=== PATIENT | female | born 1945 | race African-American/Black ===

== ENCOUNTER 2017-01-24 13:46 | Inpatient (IN) | payer OTHER, MEDICARE ==
[~2017-01-24] VITALS: Ht 154.9 cm; Wt 81.2 kg
[~2017-01-24 13:46] MED LIST: ASPI81TA28 PO; BACL10TA4 PO; BECL0.089 IH; BENA5TAB13 PO; BISA5ECT2 PO; FURO-570 PO; Gabapentin PO; LOVA10TA27 PO; METF850T PO; NAPR375T2 PO; OMEP-48 PO; POTA10TA10 PO; QUET25TA PO; SPIR50TA PO
--- NOTE | 2017-01-24 13:58 | NUR ---
PT TO OVERFLOW.
--- NOTE | 2017-01-24 14:00 | NUR ---
PATIENT BIBA FOR EVALATION OF NICOLAS FOOT PAIN X2 DAYS. HX DM, CVA-NO DEFICITS . PT STATES THE PAIN HAS GOTTEN WORSE OVER THE PAST 2 DAYS . DENIES N/V/D; SKIN IS WARM/DRY; AAOX4; LUNGS CLEAR BL; HR EVEN AND REGULAR; PT DENIES ANY FEVER, CP, SOB, OR COUGH AT THIS TIME; PATIENT STATES PAIN OF 9/10 AT THIS TIME; VSS; PATIENT POSITIONED IN OVERFLOW. ER MADE AWARE OF PT STATUS. Addendum: 01/24/17 at 1537 by MED1 NICOLAS LUNGS WHEEZING. LBACK PAIN 9/10 AT THIS TIME.
[2017-01-24 14:04] VITALS: BP 154/90
--- NOTE | 2017-01-24 15:20 | NUR ---
Patient being evaluated by DR CENTENO at bedside.
[2017-01-24] MEDS ORDERED: NACL 0.9% 500 ML IV SCH (15:39)
[2017-01-24] MEDS ORDERED: ALBUTEROL 0.083% 2.5 MG/3 ML NEBU INH ONE (15:45)
[2017-01-24] MEDS ORDERED: IPRATROPIUM 0.02% 0.5 MG/2.5 ML NEBU INH ONE (15:45)
[2017-01-24] MEDS ORDERED: methylPREDNISolone SS 125 MG/2 ML VIAL IVP ONE (15:45)
--- NOTE | 2017-01-24 16:01 | NUR ---
RT AT BEDSIDE
[2017-01-24 16:05] LABS: BASOPHILS # (AUTO) 0.1 K/uL (0.00-0.22); BASOPHILS % (AUTO) 1.3 % (0.0-2.0); EOSINOPHILS # (AUTO) 0.2 K/uL (0-0.4); EOSINOPHILS % (AUTO) 1.8 % (0.0-4.0); HEMATOCRIT 35.4 % (36-48); LYMPHOCYTES # (AUTO) 0.8 K/uL (2.5-16.5); LYMPHOCYTES % (AUTO) 8.4 % (20.5-51.1); MEAN CORPUSCULAR HEMOGLOBIN 25 pg (27-31); MEAN CORPUSCULAR HGB CONC 31 g/dL (33-37); MEAN CORPUSCULAR VOLUME 81 fL (80-94); MONOCYTES # (AUTO) 0.1 K/uL (0.8-1.0); NEUTROPHILS # (AUTO) 8.2 K/uL (1.8-7.7); NEUTROPHILS % (AUTO) 87.5 % (42.2-75.2); PLATELET COUNT (AUTO) 336 K/uL (140-450); RED BLOOD CELL COUNT(AUTO) 4.38 MIL/uL (4.20-5.40); RED CELL DISTRIBUTION WIDTH 14.6 % (11.6-13.7); WHITE BLOOD COUNT (AUTO) 9.4 K/uL (4.8-10.8)
[2017-01-24 16:26] LABS: PROTHROMBIN TIME 10.6 secs (10.8-13.4)
[2017-01-24 16:28] LABS: ALBUMIN 4.1 g/dL (3.4-5.0); ANION GAP 19.5 (8-16); CARBON DIOXIDE 21.5 mmol/L (21-32); CREATININE 1.6 mg/dL (0.6-1.3); TOTAL BILIRUBIN 0.4 mg/dL (0.0-1.0)
[2017-01-24 16:34] LABS: APPEARANCE,URINE CLEAR (CLEAR); BILIRUBIN,URINE NEGATIVE (NEGATIVE); BLOOD, URINE 1+ (NEGATIVE); COLOR,URINE YELLOW (YELLOW); LEUKOCYTE ESTERASE ,URINE NEGATIVE (NEGATIVE); NITRITE, URINE NEGATIVE (NEGATIVE); UGLUCOSE NEGATIVE (NEGATIVE)
[2017-01-24 16:48] LABS: WBC,URINE 0-5 /HPF (0-5)
--- NOTE | 2017-01-24 16:53 | NUR ---
X RAY AT BEDSIDE.
[2017-01-24 17:17] LABS: CKMB RELATIVE INDEX 0.4 (0.0-2.5); CREATINE KINASE MB 3.8 ng/mL (0-3.6)
[2017-01-24] MEDS ORDERED: LEVOFLOXACIN 500 MG/D5W PREMIX 100 ML IV ONE (17:25)
[2017-01-24] MEDS ORDERED: ONDANSETRON 4 MG/2 ML VIAL IM/IVP PRN (17:55)
[2017-01-24] MEDS ORDERED: DOCUSATE SODIUM 100 MG GELCAP PO PRN (17:55)
[2017-01-24] MEDS: NACL 0.9% 1,000 ML IV SCH (17:55)
[2017-01-24] MEDS ORDERED: ACETAMINOPHEN 325 MG TAB PO PRN (17:55)
[2017-01-24] MEDS ORDERED: MORPHINE SULFATE 2 MG/ML SYR IVP PRN (17:55)
--- NOTE | 2017-01-24 17:56 | NUR ---
Patient appears to be resting comfortably in bed. BP 136/87. Respirations even and unlabored.WILL CONTINUE TO MONITOR.
[2017-01-24 18:44] LABS: CHOL/HDL RATIO 1.7 (1-4.5); FREE T4 (FREE THYROXINE) 1.11 ng/dL (0.76-1.46); MAGNESIUM 2.1 mg/dL (1.8-2.4); PHOSPHORUS 4.6 mg/dL (2.5-4.9); THYROID STIMULATING HORMONE 0.43 uIU/mL (0.34-3.74)
--- NOTE | 2017-01-24 18:57 | NUR ---
GAVE REPORT TO DAIN ALVARADO
--- NOTE | 2017-01-24 18:58 | NUR ---
Patient will be admitted to care of DR MONTANO. Admited to TELE. Will go to room 120B. Belongings list completed. Report to DAIN ALVARADO.
--- NOTE | 2017-01-24 19:05 | NUR ---
PATIENT NOT YET ON UNIT. GAVE REPORT TO NIGHT NURSE.
--- NOTE | 2017-01-24 19:30 | NUR ---
RECEIVED REPORT FROM DAY RN, PATIENT NOT YET ON UNIT.
--- NOTE | 2017-01-24 19:45 | NUR ---
PATIENT ADMITTED TO UNIT FROM ED,VIA GURNEY, PATIENT TRANSFERRED TO BED, IV TO RIGHT FA PATENT AND INTACT. PATIENT IS AAOX2 ON ROOM AIR, NO SOB OR SIGN OF DISTRESS. PATIENT VERY CONFUSED AND FRIGHTENED STATING SHE DOES NOT WANT HER FAMILY TO COME HERE, THEY ARE TRYING TO " SHOOT AT HER" PATIENT UPSET. PATIENT ABLE TO FOLLOW COMMANDS. SKIN INTACT WITH SCABS TO RIGHT LOWER EXTREMITIES. PATIENT PLACE ON FALL PRECAUTIONS. SAFETY MEASURES CHECKED, DISCUSSED PLAN OF CARE WITH PATIENT, PT NEEDS REINFORCEMENT. ORIENTED TO ROOM AND CALL LIGHT. WILL CONTINUE TO CLOSELY MONITOR.
[2017-01-24] MEDS ORDERED: BISACODYL 5 MG TABEC PO PRN (20:25)
[2017-01-24] MEDS ORDERED: NON-FORMULARY ITEM (Omeprazole (Omeprazole Dr) 20 MG) PO PRN (20:25)
[2017-01-24] MEDS ORDERED: BACLOFEN 10 MG TAB PO PRN (20:25)
[2017-01-24 20:45] LABS: BARBITURATE, URINE NEG. ng/ml (NEG <=200); BENZODIAZEPINE, URINE NEG. ng/mL (NEG <=200); CANNABINOID, URINE NEG. ng/mL (NEG <=50); COCAINE, URINE NEG. ng/mL (NEG <=300); OPIATE, URINE NEG. ng/mL (NEG <=2000); PHENCYCLIDINE SCREEN,URINE NEG. ng/mL (NEG <=25)
[2017-01-24] MEDS ORDERED: [UNRECOGNIZED DRUG - OTHER] IH SCH (21:00)
[2017-01-24] MEDS ORDERED: GABAPENTIN NEURONTIN PO SCH (21:00)
--- NOTE | 2017-01-24 21:39 | NUR ---
PT OFF UNIT TO CT
[2017-01-24] MEDS ORDERED: DEXTROSE 50% 50 ML SYR IVP PRN (21:50)
[2017-01-24] MEDS ORDERED: INSULIN LISPRO SLIDING SCALE 100 UNITS/ML VIAL SUBQ PRN (21:50)
--- NOTE | 2017-01-24 21:59 | NUR ---
PATIENT BACK FROM CT, STABLE CONDITION
[2017-01-24] MEDS: CLINDAMYCIN 600 MG in DEXTROSE 5% 50 ML IV SCH ×2 (22:00→23:37)
--- NOTE | 2017-01-24 22:00 | NUR ---
PM MEDS ADMINISTERED, PATIENT TOLERATED WELL, DR BABB IN TO CHECK ON PATIENT, PATIENT VERY CONFUSED, VERY SCARED FAMILY IS TRYING TO GET IN TO SEE HER OR THROUGH THE WINDOWS. EXPLAINED TO PATIENT,SHE IS SAFE PATIENT RESTING IN BED, WILL CONTINUE TO CLOSELY MONITOR.
[2017-01-24] MEDS: POTASSIUM CHLORIDE 10 MEQ TABER PO SCH (22:09)
[2017-01-24] MEDS: QUEtiapine FUMARATE 25 MG TAB PO SCH (22:09)
[2017-01-24] MEDS: HYDROcodone/APAP 7.5/325 MG 1 TAB PO PRN (22:10)
[2017-01-24] MEDS: FUROSEMIDE 40 MG TAB PO SCH (22:10)
--- NOTE | 2017-01-24 23:05 | NUR ---
PATIENT VERY FRIGHTENED WHEN OTHER NURSE WENT INTO PATIENT'S ROOM, PT STARTED SCREAMING FOR HELP. CALMED PATIENT DOWN, SPOKE WITH CHARGE NURSE TO MOVE PATIENT CLOSER TO STATION PATIENT IS FALL RISK AND SCARED, PATIENT MOVED ROOMS, RESTING IN BED, CALL LIGHT WITHIN REACH. WILL CONTINUE OT MONITOR
[2017-01-24] MEDS ORDERED: CLINDAMYCIN 600 MG/4 ML VIAL ONE (23:38)
[2017-01-25] VITALS: BP 154/85
--- NOTE | 2017-01-25 | NUR ---
VITAL SIGNS STABLE, NO SIGN OF DISTRESS, CALL LIGHT WITHIN REACH. WILL CONTINUE TO MONITOR.
[2017-01-25] MEDS: IPRATROPIUM 0.02% 0.5 MG/2.5 ML NEBU INH PRN (00:05)
[2017-01-25] MEDS: ALBUTEROL 0.083% 2.5 MG/3 ML NEBU INH PRN (00:05)
[2017-01-25] MEDS: NACL 0.9% 1,000 ML IV SCH ×4 (01:03→19:46)
--- NOTE | 2017-01-25 02:00 | NUR ---
PT RESTING IN BED, NO SIGN OF DISTRESS, WILL CONTINUE TO MONITOR
[2017-01-25 04:00] VITALS: BP 156/94
--- NOTE | 2017-01-25 04:00 | NUR ---
VITAL SIGNS STABLE, NO SIGN OF DISTRESS, WILL CONTINUE TO MONITOR. PATIENT WET THE BED, PT CLEANED AND REPOSITIONED BY CNAS.
[2017-01-25] MEDS ORDERED: CLINDAMYCIN 600 MG/4 ML VIAL ONE (05:43)
[2017-01-25] MEDS: CLINDAMYCIN 600 MG in DEXTROSE 5% 50 ML IV SCH ×3 (05:46→18:00)
--- NOTE | 2017-01-25 06:12 | NUR ---
PATIENT REFUSE BLOOD SUGAR CHECK
[2017-01-25] MEDS: BLOOD GLUCOSE MONITORING 1 DEV DEV FS SCH ×4 (06:42→21:00)
[2017-01-25 06:50] LABS: HEMATOCRIT 35.2 % (36-48); HEMOGLOBIN 11.3 g/dL (12.0-16.0); MEAN CORPUSCULAR HEMOGLOBIN 26 pg (27-31); MEAN CORPUSCULAR HGB CONC 32 g/dL (33-37); MEAN CORPUSCULAR VOLUME 81 fL (80-94); PLATELET COUNT (AUTO) 284 K/uL (140-450); RED BLOOD CELL COUNT(AUTO) 4.35 MIL/uL (4.20-5.40); RED CELL DISTRIBUTION WIDTH 14.6 % (11.6-13.7); WHITE BLOOD COUNT (AUTO) 8.9 K/uL (4.8-10.8)
[2017-01-25 07:09] LABS: CREATININE 1.2 mg/dL (0.6-1.3)
[2017-01-25 07:13] LABS: POTASSIUM 3.7 mmol/L (3.5-5.1)
[2017-01-25 07:14] LABS: ANION GAP 17.1 (8-16); CARBON DIOXIDE 22.6 mmol/L (21-32)
[2017-01-25] MEDS: BUDESONIDE 0.25 MG/2 ML NEBU INH SCH (07:25)
--- NOTE | 2017-01-25 07:31 | NUR ---
ENDORSED PATIENT TO DAY RN AT BEDSIDE, PATIENT IN STABLE CONDITION
--- NOTE | 2017-01-25 07:32 | NUR ---
RECEIVED REPORT FROM FINANCE ADMIN NURSE AT PT BEDSIDE. PT IS AO X2, ON ROOM AIR, NO SIGNS OF DISTRESS OR SOB NOTED. PT HAS A 22 GAUGE ON HER RIGHT FOREARM RUNNING NS AT 160ML/HR. BED IS IN LOW POSITION, CALL LIGHT WITHIN REACH. WILL CONTINUE TO MONITOR.
[2017-01-25 07:57] LABS: EOSINOPHILS % (MANUAL) 1 % (0-4); LYMPHOCYTES % (MANUAL) 10 % (20-46); MONOCYTES % (MANUAL) 4 % (5-12)
[2017-01-25] MEDS ORDERED: metFORMIN 850 MG TAB PO SCH (08:00)
--- NOTE | 2017-01-25 08:35 | NUR ---
PATIENT REFUSING VITAL SIGNS CHECK. PT IS VERY CONFUSED STATING PEOPLE ARE "BAD AND WANT TO HURT HER." TRIED TO PULL DOWN THE BED RAILS BECAUSE SHE HAD ALL 4 RAILS UP, AND PT STARTED SCREAMING SAYING TO LEAVE IT (BED RAIL) ALONE AND TO GET OUT. PT HAS BLOOD PRESSURE MEDICATIONS DUE, BUT WILL NOT ADMINISTER WITHOUT KNOWING WHAT HER CURRENT BLOOD PRESSURE/HEART RATE. TALKED TO DR. LUA, SHE IS AWARE OF THE SITUATION. BED IS IN LOW POSITION WITH BED ALARM ON. CALL LIGHT IS WITHIN REACH, WILL CONTINUE TO MONITOR.
--- NOTE | 2017-01-25 08:48 | NUR ---
DR LUA AT PT BEDSIDE. PT IS AGITATED/IRRITABLE. PT YELLING AT EVERYONE THAT GOES INTO HER ROOM AND TELLING EVERYONE TO GET OUT.
[2017-01-25] MEDS ORDERED: BENAZEPRIL 5 MG TAB PO SCH (09:00)
[2017-01-25] MEDS ORDERED: LOVASTATIN 10 MG PO SCH (09:00)
[2017-01-25] MEDS: FUROSEMIDE 40 MG TAB PO SCH ×2 (09:00→21:00)
[2017-01-25] MEDS: ECOTRIN 81 MG TABEC PO SCH (09:00)
[2017-01-25] MEDS: SPIRONOLACTONE 50 MG TAB PO SCH (09:00)
[2017-01-25] MEDS: POTASSIUM CHLORIDE 10 MEQ TABER PO SCH ×2 (09:00→21:00)
--- NOTE | 2017-01-25 09:50 | NUR ---
NO SIGNS OF DISTRESS NOTED. PT STABLE. BED IN LOW POSITION, CALL LIGHT WITHIN REACH. WILL CONTINUE TO MONITOR.
[2017-01-25 10:29] LABS: T4 (THYROXINE) 8.9 ug/dL (4.5 - 12.0)
--- NOTE | 2017-01-25 11:56 | NUR ---
ROAD PRODUCTION GENERAL MANAGER AT BEDSIDE, PT REFUSED ECHO. PT IS AGITATED WHEN SOMEONE WALKS INTO ROOM.
[2017-01-25] MEDS ORDERED: LORazepam 2 MG/ML VIAL IVP PRN (12:00)
[2017-01-25] MEDS ORDERED: HALOPERIDOL IM 5 MG/ML VIAL IM SCH ×4 (12:40→18:20)
--- NOTE | 2017-01-25 12:50 | NUR ---
ATTEMPTED TO OBTAIN ABG. PT STARTED YELLING "NO DONT COME IN" WHEN ENTERING UPON THE ROOM. EXPLAINED TO PT INDICATIONS FOR ABG PT BECAME EXTREMELY AGITATED. PT WOULD NOT ALLOW PULSE TO BE PALPATED.
--- NOTE | 2017-01-25 13:00 | NUR ---
PT REFUSED IVF AT THIS TIME, TRIED TO GRAB ONTO RN'S HAND WHEN TRYING TO SPIKE A NEW BAG OF NS.
--- NOTE | 2017-01-25 13:25 | NUR ---
PATIENT'S BED VISIBLY SOILED WITH URINE, BUT PATIENT REFUSING TO LET ANYONE CLEAN OR CHANGE LINEN. PT STARTS KICKING AND WAVING ARMS AROUND. HALDOL IM WAS ADMINISTERED WITH HELP FROM OTHER NURSES, SECURITY, AND DOCTORS. PATIENT VERY CONFUSED, BUT STABLE. PT YELLS "YOU ALL WANT TO HURT ME" SOON SHE SEES ANYONE. BED IN LOW POSITION, CALL LIGHT WITHIN REACH. WILL CONTINUE TO MONITOR.
--- NOTE | 2017-01-25 15:02 | NUR ---
P.T. NOTES RECEVIED P.T. EVAL ORDER, CHART REVIEWED, PT HAS BEEN REFUSING SERVICES EVEN FROM OTHER DISCIPLINES AND AGITATED. UPON P.T. ARRIVAL PT CAME INTO A LONG SITTING POSITION AND SHOUTED ACROSS THE ROOM "I DON'T STELLA YOU HERE, PLEASE DON'T STEP INSIDE." THIS P.T. REASSURED PT SHE IS IN A HOSPITAL AND STAFF IS ONLY HERE TO HELP HER. PT STATES " JUST PLEASE GO! DON'T COME IN HERE." NRSG MADE AWARE, PT IS HIGHLY AGITATED AT THIS TIME AND WOULD BE UNABLE TO OBJECTIVELY PERFORM WITH REHAB SERVICES. NURSE AGREEABLE TO HOLD EVAL FOR THE DAY. DARIUS
--- NOTE | 2017-01-25 15:10 | NUR ---
DR. ARGUELLO AND DR. LUA AWARE OF PT'S UNCOOPERATIVE AND AGITATED BEHAVIOR, WILL ORDER ADDITIONAL DOSE OF HALDOL.
--- NOTE | 2017-01-25 15:34 | NUR ---
MORE HALDOL WAS ADMINISTERED WITH THE HELP OF SEVERAL NURSES AND DEAN OF STUDENTS. PT AGITATED UNTIL ROOM EMPTIED. BED IN LOW POSITION, CALL LIGHT WITHIN REACH. WILL CONTINUE TO MONITOR. Addendum: 01/25/17 at 1700 by Wlilow Reddy RN DISREGARD NOTE. WRONG TIME.
--- NOTE | 2017-01-25 15:35 | NUR ---
MORE HALDOL WAS ADMINISTERED WITH THE HELP OF SEVERAL NURSES AND ENVIRONMENTAL STUDIES PROFESSOR. PT AGITATED UNTIL ROOM EMPTIED. BED IN LOW POSITION, CALL LIGHT WITHIN REACH. WILL CONTINUE TO MONITOR.
--- NOTE | 2017-01-25 16:30 | NUR ---
PT REFUSES BLOOD SUGAR CHECK AND VITAL SIGNS ASSESSMENT. PT STILL REFUSES TO LET ANYONE CHANGE DIRTY LINEN. PT DANGLING FEET AT EDGE OF THE BED BETWEEN BED RAILS, TOLD HER TO LET ME RELEASE AT LEAST ONE BED RAIL AND SHE YELLED "NO LEAVE ME ALONE." PT STILL VERY AGITATED. NO SOB OR RESPIRATORY DISTRESS NOTED. BED IN LOW POSITION, CALL LIGHT WITHIN REACH. WILL CONTINUE TO MONITOR.
--- NOTE | 2017-01-25 16:57 | NUR ---
MORE HALDOL WAS ADMINISTERED WITH THE HELP OF SEVERAL NURSES AND DIGITAL ADVERTISING SPECIALIST. PT AGITATED UNTIL ROOM EMPTIED. BED IN LOW POSITION, CALL LIGHT WITHIN REACH. WILL CONTINUE TO MONITOR. Addendum: 01/25/17 at 1834 by Willow Reddy RN DISREGARD
--- NOTE | 2017-01-25 17:50 | NUR ---
PT SITTING AT EDGE OF BED. REFUSED TO BE TOUCHED OR HELPED, REFUSED RN & CMM INSPECTOR'S OFFER TO CHANGE PAD UNDER HER BUTTOCKS.
[2017-01-25] MEDS ORDERED: LEVOFLOXACIN 500 MG/D5W PREMIX 100 ML IV SCH (18:00)
[2017-01-25] MEDS ORDERED: LEVOFLOXACIN 250 MG/D5 PREMIX 50 ML IV SCH (18:00)
--- NOTE | 2017-01-25 18:34 | NUR ---
PT WAS AGITATED AND TRIED TO GET UP. GAVE HALDOL 5MG IM WITH HELP OF 1 TIERCE FILLER AND 4 NURSES. HELPED PT BACK TO BED.
--- NOTE | 2017-01-25 19:32 | NUR ---
ENDORSED PT TO CRM SPECIALIST RN. NO SIGNS OF DISTRESS NOTED.
--- NOTE | 2017-01-25 19:37 | NUR ---
RECEIVED REPORT FROM DAY RN. PATIENT WAS AGITATED AND YELLING," GET OUT OF MY ROOM. I DON'T WANT NURSES, GET OUT." WHEN RECEIVING REPORT OUTSIDE OF PATIENT'S ROOM, PATIENT WAS RESTING IN BED, RESPIRATION EVEN AND UNLABORED. NOTED CALL LIGHT WAS WITHIN REACH, SAFETY MEASURE ENSURED, WILL CONTINUE TO MONITOR.
--- NOTE | 2017-01-25 19:45 | NUR ---
PT REFUSING TO HAVE RESPIRATORY ASSESSMENT DONE. PT YELLING "GET OUT OF MY ROOM", TRIED TO EXPLAIN TO PT WHO I WAS AND WHY I WAS THERE BUT SHE CONTINUED TO YELL AND REFUSE TX. PT'S DAIN JENNINGS AND GAS SYSTEMS WORKER HEBERT AWARE OF PT'S REFUSAL. PT'S DAIN JENNINGS TO NOTIFY MD OF PT'S REFUSAL.
--- NOTE | 2017-01-25 20:05 | NUR ---
PATIENT REFUSED VITAL SIGNS, AND BLOOD SUGAR CHECK. EDUCATION GIVEN ON THE IMPORTANCE OF MONITORING VITAL SIGNS, AND BLOOD SUGAR, PATIENT STATED," I DON'T CARE, GET OUT." CALL LIGHT STILL WITHIN REACH, SAFETY MEASURE ENSURED, WILL CONTINUE TO MONITOR.
[2017-01-25] MEDS: SIMVASTATIN 10 MG TAB PO SCH (21:00)
[2017-01-25] MEDS: GABAPENTIN 300 MG CAP PO SCH (21:00)
[2017-01-25] MEDS: QUEtiapine FUMARATE 25 MG TAB PO SCH (21:00)
--- NOTE | 2017-01-25 21:35 | NUR ---
PATIENT REFUSING TO HAVE PM MEDICATIONS, EDUCATION GIVEN ON THE IMPORTANCE OF TAKING MEDICATIONS, PATIENT YELLED," NO, NO, GET OUT, GET OUT, I DON'T CARE." MADE DR. JIMENEZ AWARE THAT PATIENT REFUSING VITAL SIGNS, BLOOD SUGAR CHECK, AND PM MEDICATIONS. CALL LIGHT WITHIN REACH, SAFETY MEASURE ENSURED, WILL CONTINUE TO MONITOR.
--- NOTE | 2017-01-25 23:10 | NUR ---
DR. JIMENEZ IS EXAMINING THE PATIENT.
[2017-01-26] MEDS ORDERED: HALOPERIDOL IM 5 MG/ML VIAL IM SCH (00:05)
--- NOTE | 2017-01-26 00:30 | NUR ---
PATIENT STILL REFUSING VITAL SIGNS, EDUCATION GIVEN ON THE IMPORTANCE OF MONITORING VITAL SIGNS, PATIENT STATED," NO, NO, GET OUT OF HERE, I DON'T WANT YOU TO CHECK ME, AND I DON'T WANT YOU TO TOUCH ME." DR. JIMENEZ IS AWARE. NOTED CALL LIGHT WITHIN REACH, SAFETY MEASURE ENSURED, WILL CONTINUE TO MONITOR.
[2017-01-26] MEDS: NACL 0.9% 1,000 ML IV SCH ×4 (02:01→20:46)
--- NOTE | 2017-01-26 02:48 | NUR ---
PATIENT SLEEPING IN BED AT THIS TIME, RESPIRATION EVEN AND UNLABORED, NO S/S OF ACUTE DISTRESS NOTED, CALL LIGHT WITHIN REACH, SAFETY MEASURE ENSURED, WILL CONTINUE TO MONITOR.
[2017-01-26] MEDS: GABAPENTIN 300 MG CAP PO SCH ×3 (05:00→21:15)
[2017-01-26] MEDS ORDERED: LORazepam 2 MG/ML VIAL IVP SCH (05:00)
--- NOTE | 2017-01-26 05:35 | NUR ---
PATIENT STILL REFUSING MEDICATIONS, EDUCATION GIVEN, PATIENT STATED," NO I DON'T WANT IT, GET OUT." NO S/S OF ACUTE DISTRESS NOTED, CALL LIGHT WITHIN REACH, SAFETY MEASURE ENSURED, WILL CONTINUE TO MONITOR.
[2017-01-26] MEDS: CLINDAMYCIN 600 MG in DEXTROSE 5% 50 ML IV SCH ×5 (06:00→18:11)
--- NOTE | 2017-01-26 06:20 | NUR ---
T 98.1, BP 140/106, HR 123, RR 19, O2SAT 93%, DR. LUA IS EXAMINING PATIENT AT THE BEDSIDE.
[2017-01-26 06:50] LABS: MEAN CORPUSCULAR HEMOGLOBIN 26 pg (27-31); MEAN CORPUSCULAR HGB CONC 32 g/dL (33-37); MEAN CORPUSCULAR VOLUME 80 fL (80-94); PLATELET COUNT (AUTO) 299 K/uL (140-450); RED BLOOD CELL COUNT(AUTO) 4.64 MIL/uL (4.20-5.40); RED CELL DISTRIBUTION WIDTH 14.4 % (11.6-13.7); WHITE BLOOD COUNT (AUTO) 10.2 K/uL (4.8-10.8)
[2017-01-26] MEDS: BLOOD GLUCOSE MONITORING 1 DEV DEV FS SCH ×4 (07:03→21:24)
[2017-01-26] MEDS: BUDESONIDE 0.25 MG/2 ML NEBU INH SCH ×2 (07:10→19:28)
--- NOTE | 2017-01-26 07:15 | NUR ---
ENDORSED PLAN OF CARE TO DAY RN. PATIENT IS IN STABLE CONDITION.
--- NOTE | 2017-01-26 07:20 | NUR ---
RECEIVED REPORT FROM SAP BODS DEVELOPER NURSE AT PT BEDSIDE. PT IS AAOX2 TO PERSON AND PLACE, ON ROOM AIR. PT ON SOFT WRIST RESTRAINTS. SKIN INTACT. IV IS ASYMPTOMATIC ON RIGHT FA, 22 GAUGE. REVIEWED PLAN OF CARE WITH PATIENT, PT VERBALIZED UNDERSTANDING. PT IS STABLE, NO SIGNS OF DISTRESS NOTED. BED IN LOW POSITION, CALL LIGHT WITHIN REACH. WILL CONTINUE TO MONITOR.
[2017-01-26 07:22] LABS: ANION GAP 18.5 (8-16); CARBON DIOXIDE 19.7 mmol/L (21-32); CREATININE 0.9 mg/dL (0.6-1.3); POTASSIUM 3.2 mmol/L (3.5-5.1)
[2017-01-26 07:28] LABS: MAGNESIUM 1.4 mg/dL (1.8-2.4); PHOSPHORUS 2.7 mg/dL (2.5-4.9)
--- NOTE | 2017-01-26 07:30 | NUR ---
PATIENT HAS BEEN SCREENED AND CATEGORIZED MODERATE NUTRITION RISK. PATIENT WILL BE SEEN WITHIN 3-5 DAYS OF ADMISSION. 01/26/17-01/28/17 JASSI FIGUEROA MS, RDN
[2017-01-26 08:00] VITALS: BP 142/114
[2017-01-26 08:00] LABS: BASOPHILS % (MANUAL) 0 % (0-2); EOSINOPHILS % (MANUAL) 1 % (0-4); LYMPHOCYTES % (MANUAL) 13 % (20-46); MONOCYTES % (MANUAL) 4 % (5-12)
--- NOTE | 2017-01-26 08:06 | NUR ---
DISCONTINUED THE RESTRAINTS AT BEDSIDE. PT CALM AT THIS TIME. CALL LIGHT WITHIN REACH. WILL CONTINUE TO MONITOR.
[2017-01-26] MEDS: POTASSIUM CHLORIDE 10 MEQ TABER PO SCH ×2 (09:05→21:15)
[2017-01-26] MEDS: ECOTRIN 81 MG TABEC PO SCH (09:05)
[2017-01-26] MEDS: BENAZEPRIL 10 MG TAB PO SCH (09:05)
[2017-01-26] MEDS: PANTOPRAZOLE 40 MG TABEC PO SCH (09:05)
[2017-01-26] MEDS: FUROSEMIDE 40 MG TAB PO SCH ×2 (09:06→21:14)
[2017-01-26] MEDS: SPIRONOLACTONE 50 MG TAB PO SCH (09:06)
--- NOTE | 2017-01-26 09:15 | NUR ---
ADMINISTERED SCHEDULED MORNING MEDS. PT TOLERATED WELL. PT IS STABLE, NO SIGNS OF DISTRESS NOTED. BED IN LOW POSITION, CALL LIGHT WITHIN REACH. WILL CONTINUE TO MONITOR.
--- NOTE | 2017-01-26 10:20 | NUR ---
SPOKE TO DR. LUA REGARDING PT'S MAG LEVEL 1.4 AND POTASSIUM 3.2.
--- NOTE | 2017-01-26 11:30 | NUR ---
PT REFUSED BLOOD SUGAR CHECK. PT STATED SHE HAD JUST TAKEN IT HERSELF WITH HER "BLACK MACHINE AND IT WAS 103." PT IS STABLE, NO SIGNS OF DISTRESS NOTED. BED IN LOW POSITION, CALL LIGHT WITHIN REACH. WILL CONTINUE TO MONITOR.
[2017-01-26 12:00] VITALS: BP 143/89
--- NOTE | 2017-01-26 13:40 | NUR ---
BED ALARM WENT OFF, RAN TO PT'S ROOM, PT ON EDGE OF BED TRYING TO GET UP TO USE THE RESTROOM. OFFERED BED ALMODOVAR, PT REFUSED. PT GAIT UNSTEADY, HAD ANOTHER NURSE HELP ME WALK PT TO RESTROOM AND THEN BACK TO BED. PT IS STABLE, NO SIGNS OF DISTRESS NOTED. BED IN LOW POSITION, CALL LIGHT WITHIN REACH. WILL CONTINUE TO MONITOR.
--- NOTE | 2017-01-26 15:36 | NUR ---
GAVE MORE ICE WATER PER PT REQUEST. PT IS STABLE, VITALS WNL. NO SIGNS OF DISTRESS NOTED. BED IN LOW POSITION, CALL LIGHT WITHIN REACH. WILL CONTINUE TO MONITOR.
[2017-01-26 16:00] VITALS: BP 120/82
--- NOTE | 2017-01-26 16:30 | NUR ---
PT REFUSED BLOOD SUGAR CHECK. PT IS STABLE, NO SIGNS OF DISTRESS NOTED. BED IN LOW POSITION, CALL LIGHT WITHIN REACH. WILL CONTINUE TO MONITOR.
[2017-01-26] MEDS: LEVOFLOXACIN 500 MG/D5W PREMIX 100 ML IV SCH (18:10)
[2017-01-26] MEDS: HYDROcodone/APAP 7.5/325 MG 1 TAB PO PRN (18:17)
--- NOTE | 2017-01-26 18:40 | NUR ---
REMINDED DR LUA ABOUT PT'S POTASSIUM AND MAGNESIUM LEVELS.
--- NOTE | 2017-01-26 19:25 | NUR ---
ENDORSED CARE OF PT TO LIGHT ARMORED RECONNAISSANCE OFFICER NURSE AT BEDSIDE. PT IN STABLE CONDITION.
[2017-01-26] MEDS: IPRATROPIUM 0.02% 0.5 MG/2.5 ML NEBU INH PRN (19:28)
[2017-01-26] MEDS: ALBUTEROL 0.083% 2.5 MG/3 ML NEBU INH PRN (19:28)
--- NOTE | 2017-01-26 19:30 | NUR ---
RECEIVED HANDOFF REPORT FROM AM RN. PATIENT A&OX4. IV SITE PATENT AND INTACT. PATIENT DENIES PAIN. SAFETY MEASURES ENSURED. CALL LIGHT WITHIN REACH. WILL CONTINUE TO MONITOR.
[2017-01-26 20:00] VITALS: BP 100/69
[2017-01-26] MEDS: SIMVASTATIN 10 MG TAB PO SCH (21:16)
[2017-01-26] MEDS: QUEtiapine FUMARATE 25 MG TAB PO SCH (21:17)
--- NOTE | 2017-01-26 22:00 | NUR ---
PATIENT AWAKE AND ALERT. PATIENT DENIES PAIN. IV SITE NOT INTACT. WILL START NEW IV. NO SIGNS AND SYMPTOMS OF ACUTE DISTRESS. CALL LIGHT WITHIN REACH. WILL CONTINUE TO MONITOR.
[2017-01-27] VITALS: BP 101/69
[2017-01-27] MEDS: CLINDAMYCIN 600 MG in DEXTROSE 5% 50 ML IV SCH ×4 (00:36→17:13)
--- NOTE | 2017-01-27 00:52 | NUR ---
PATIENT SLEEPING. NO SIGNS AND SYMPTOMS OF ACUTE DISTRESS NOTED. CALL LIGHT WITHIN REACH. WILL CONTINUE TO MONITOR.
[2017-01-27] MEDS ORDERED: MAG SULF 2000 MG/WATER PREMIX 50 ML IV SCH (01:55)
--- NOTE | 2017-01-27 02:47 | NUR ---
PATIENT AWAKE. ASSISTED PATIENT TO BATHROOM AND BACK IN BED. PATIENT DENIES PAIN. NO SIGNS AND SYMPTOMS OF ACUTE DISTRESS NOTED. CALL LIGHT WITHIN REACH. WILL CONTINUE TO MONITOR.
[2017-01-27] MEDS: NACL 0.9% 1,000 ML IV SCH ×4 (03:01→21:58)
[2017-01-27 04:00] VITALS: BP 96/61
[2017-01-27] MEDS: GABAPENTIN 300 MG CAP PO SCH ×3 (05:15→20:57)
[2017-01-27] MEDS: NAPROXEN 375 MG TAB PO PRN ×2 (05:25→09:12)
--- NOTE | 2017-01-27 05:26 | NUR ---
PATIENT REPORTS PAIN 12/02. MEDICATED ORDERED. NO SIGNS AND SYMPTOMS OF ACUTE DISTRESS NOTED. CALL LIGHT WITHIN REACH. WILL CONTINUE TO MONITOR.
[2017-01-27 06:18] LABS: BASOPHILS # (AUTO) 0.3 K/uL (0.00-0.22); BASOPHILS % (AUTO) 3.5 % (0.0-2.0); EOSINOPHILS # (AUTO) 0.2 K/uL (0-0.4); EOSINOPHILS % (AUTO) 2.3 % (0.0-4.0); HEMATOCRIT 34.7 % (36-48); LYMPHOCYTES # (AUTO) 1.6 K/uL (2.5-16.5); LYMPHOCYTES % (AUTO) 21.8 % (20.5-51.1); MEAN CORPUSCULAR HEMOGLOBIN 26 pg (27-31); MEAN CORPUSCULAR HGB CONC 32 g/dL (33-37); MEAN CORPUSCULAR VOLUME 80 fL (80-94); MONOCYTES # (AUTO) 0.4 K/uL (0.8-1.0); MONOCYTES % (AUTO) 6.1 % (1.7-9.3); NEUTROPHILS # (AUTO) 4.7 K/uL (1.8-7.7); NEUTROPHILS % (AUTO) 66.3 % (42.2-75.2); PLATELET COUNT (AUTO) 257 K/uL (140-450); RED BLOOD CELL COUNT(AUTO) 4.31 MIL/uL (4.20-5.40); RED CELL DISTRIBUTION WIDTH 14.1 % (11.6-13.7); WHITE BLOOD COUNT (AUTO) 7.2 K/uL (4.8-10.8)
[2017-01-27] MEDS: BLOOD GLUCOSE MONITORING 1 DEV DEV FS SCH ×4 (06:41→21:47)
[2017-01-27] MEDS: BUDESONIDE 0.25 MG/2 ML NEBU INH SCH ×2 (06:46→20:08)
[2017-01-27 06:53] LABS: ANION GAP 15.6 (8-16); CARBON DIOXIDE 22.9 mmol/L (21-32); CREATININE 1.1 mg/dL (0.6-1.3); POTASSIUM 3.5 mmol/L (3.5-5.1)
[2017-01-27 07:00] LABS: MAGNESIUM 2.2 mg/dL (1.8-2.4); PHOSPHORUS 2.8 mg/dL (2.5-4.9)
--- NOTE | 2017-01-27 07:11 | NUR ---
ENDORSED PLAN OF CARE TO AM RN. PATIENT STABLE. SAFETY MEASURES ENSURED.
--- NOTE | 2017-01-27 07:12 | NUR ---
RECEIVED REPORT FROM THE ACUTE CARE PHYSICIAN NURSE AT BEDSIDE FOR CONTINUITY OF CARE. PT IS AWAKE AND ALERT AND ORIENTED. INTRODUCED MYSELF AND UPDATED THE BOARD. PT HAS IV L WRIST 22G NS AT 160ML/HR. PT CLAIMS SHE HAD A BM YESTERDAY. PT DENIES ANY SOB. SOME PAIN IN HER SHOULDER PAIN 09/02. SHE HAS A R CHRISTINE SCAR, SKIN INTACT. WILL CONTINUE TO MONITOR PT.
[2017-01-27 07:23] LABS: CKMB RELATIVE INDEX 0.4 (0.0-2.5)
--- NOTE | 2017-01-27 07:50 | NUR ---
V/S WITHIN NORMAL RANGE. PT IS SITTING AT THE EDGE OF BED, DOING HER ADL'S WITH SEAM CLOSER MINIMAL ASSIST. WILL BE BACK WITH MORNING MEDS. LABS WITHIN NORMAL LIMITS. CK ON DOWNTREND.
[2017-01-27 08:00] VITALS: BP 98/72
[2017-01-27] MEDS: BENAZEPRIL 10 MG TAB PO SCH (09:00)
[2017-01-27] MEDS: ECOTRIN 81 MG TABEC PO SCH (09:10)
[2017-01-27] MEDS: SPIRONOLACTONE 50 MG TAB PO SCH (09:10)
[2017-01-27] MEDS: FUROSEMIDE 40 MG TAB PO SCH ×2 (09:10→20:57)
[2017-01-27] MEDS: PANTOPRAZOLE 40 MG TABEC PO SCH (09:10)
[2017-01-27] MEDS: POTASSIUM CHLORIDE 10 MEQ TABER PO SCH ×2 (09:10→20:58)
--- NOTE | 2017-01-27 09:17 | NUR ---
ADMINISTERED MORNING MEDS, PAIN MED AND REPLACED NS. PT TOLERATED WELL. PT STATED THAT HER PURSE AND WALLET IS MISSING. SHE CAME INTO THE HOSPITAL WITH IT BUT IT IS NOT WITH HER PERSONAL BELONGINGS. CHECKED THE BELONGINGS LIST. NO PURSE LISTED. WILL FOLLOW UP AND KEEP PT POSTED.
--- NOTE | 2017-01-27 11:50 | NUR ---
PT IS RESTING IN BED, WATCHING TV. NO SIGNS OF DISTRESS. IV PUMP BEEPING, HIGH PRESSURE. FLUSHED IV. INFUSING WELL. WILL CONTINUE TO MONITOR PT.
[2017-01-27 12:00] VITALS: BP 84/57
--- NOTE | 2017-01-27 12:38 | NUR ---
FAXED INITIAL REVIEW TO [facility] [phone] PHONE [phone] X CHANDLER San[place]
--- NOTE | 2017-01-27 13:30 | NUR ---
PT NEEDED ASSISTANCE CALLING OUT. ALL NEEDS MET. NO COMPLAINTS AT THIS TIME. WILL CONTINUE TO MONITOR PT.
--- NOTE | 2017-01-27 15:50 | NUR ---
PT IS SLEEPING. NO SIGNS OF DISTRESS. WILL CONTINUE TO MONITOR PT.
[2017-01-27 16:00] VITALS: BP 82/58
--- NOTE | 2017-01-27 17:00 | NUR ---
PT IS RESTING COMFORTABLY WITH DAUGHTER AT BEDSIDE. NO COMPLAINTS AT THIS MOMENT. WILL CONTINUE TO MONITOR PT.
[2017-01-27] MEDS: LACTOBACILLUS RHAMNOSUS GG 1 EACH CAP PO SCH (17:13)
[2017-01-27] MEDS: LEVOFLOXACIN 500 MG/D5W PREMIX 100 ML IV SCH (17:14)
[2017-01-27] MEDS: HYDROcodone/APAP 7.5/325 MG 1 TAB PO PRN ×2 (17:26→22:12)
--- NOTE | 2017-01-27 19:22 | NUR ---
ENDORSED PT TO THE JEWEL SAWYER NURSE AT BEDSIDE FOR CONTINUITY OF CARE. PT IS IN STABLE CONDITION.
--- NOTE | 2017-01-27 19:30 | NUR ---
RECEIVED REPORT FROM DAY RN AT BEDSIDE, PATIENT IS AOOX 3, FORGETFUL. ON ROOM AIR, NO SOB OR SIGN OF DISTRESS. IV TO LEFT WRIST PATENT AND INTACT, SKIN INTACT WITH SCABS TO RIGHT CHRISTINE. PATIENT STATES MILD PAIN TO LEG AND SHOULDER. DISCUSSED PLAN OF CARE WITH PATIENT, PATIENT VERBALIZED UNDERSTANDING, REINFORCEMENT NEEDED, CALL LIGHT WITHIN REACH. SAFETY MEASURES CHECKED. WILL CONTINUE TO MONITOR
[2017-01-27 20:00] VITALS: BP 105/64
[2017-01-27] MEDS: IPRATROPIUM 0.02% 0.5 MG/2.5 ML NEBU INH PRN (20:08)
[2017-01-27] MEDS: ALBUTEROL 0.083% 2.5 MG/3 ML NEBU INH PRN (20:08)
[2017-01-27] MEDS: QUEtiapine FUMARATE 25 MG TAB PO SCH (20:56)
[2017-01-27] MEDS: SIMVASTATIN 10 MG TAB PO SCH (20:57)
--- NOTE | 2017-01-27 21:09 | NUR ---
PM MEDS ADMINISTERED, PATIENT TOLERATED WELL, CALL LIGHT WITHIN REACH. WILL CONTINUE TO MONITOR
[2017-01-28] VITALS: BP 109/66
[2017-01-28] MEDS: CLINDAMYCIN 600 MG in DEXTROSE 5% 50 ML IV SCH ×4 (00:23→17:51)
--- NOTE | 2017-01-28 00:23 | NUR ---
VITAL SIGNS STABLE, NO SOB OR SIGN OF DISTRESS, CALL LIGHT WITHIN REACH. WILL CONTINUE TO MONITOR.
[2017-01-28] MEDS: NACL 0.9% 1,000 ML IV SCH ×4 (02:06→23:13)
--- NOTE | 2017-01-28 02:30 | NUR ---
PATIENT SLEEPING, NO SOB OR SIGN OF DISTRESS AT THIS TIME , CALL LIGHT WITHIN REACH. WILL CONTINUE TO MONITOR
[2017-01-28 04:00] VITALS: BP 95/59
--- NOTE | 2017-01-28 04:04 | NUR ---
VITAL SIGNS STABLE, PATIENT SLEEPING, NO SIGN OF DISTRESS, CALL LIGHT WITHIN REACH. WILL CONTINUE TO MONITOR
[2017-01-28] MEDS: GABAPENTIN 300 MG CAP PO SCH ×3 (05:29→20:40)
[2017-01-28] MEDS: HYDROcodone/APAP 7.5/325 MG 1 TAB PO PRN ×3 (05:42→20:41)
[2017-01-28] MEDS: BLOOD GLUCOSE MONITORING 1 DEV DEV FS SCH ×4 (06:35→20:40)
--- NOTE | 2017-01-28 07:21 | NUR ---
ENDORSED PATIENT TO DAY RN AT BEDSIDE, PATIENT IN STABLE CONDITION
--- NOTE | 2017-01-28 07:22 | NUR ---
RECEIVED REPORT FROM HOUSECLEANER NURSE AT BEDSIDE FOR CONTINUITY OF CARE. PT IS AWAKE AND ORIENTED. INTRODUCED SELF AND UPDATED BOARD. VS ARE WNL. PT IS ON RA. NO SIGNS OF RESPIRATORY DISTRESS. IV IS ON LEFT WRIST 22G NS AT 160ML/HR. PT HAS SCABS ON RIGHT CHRISTINE. NO COMPLAINTS AT THIS TIME WILL CONTINUE TO MONITOR.
[2017-01-28] MEDS: BUDESONIDE 0.25 MG/2 ML NEBU INH SCH ×3 (07:30→19:15)
[2017-01-28 08:00] VITALS: BP 99/68
[2017-01-28] MEDS: ECOTRIN 81 MG TABEC PO SCH (09:48)
[2017-01-28] MEDS: POTASSIUM CHLORIDE 10 MEQ TABER PO SCH ×2 (09:49→20:41)
[2017-01-28] MEDS: FUROSEMIDE 40 MG TAB PO SCH ×2 (09:49→20:43)
[2017-01-28] MEDS: SPIRONOLACTONE 50 MG TAB PO SCH (09:49)
[2017-01-28] MEDS: BENAZEPRIL 10 MG TAB PO SCH (09:49)
[2017-01-28] MEDS: LACTOBACILLUS RHAMNOSUS GG 1 EACH CAP PO SCH ×2 (09:50→17:13)
[2017-01-28] MEDS: PANTOPRAZOLE 40 MG TABEC PO SCH (09:50)
--- NOTE | 2017-01-28 09:50 | NUR ---
PT RETURNED FROM PHYSICAL THERAPY AND STATED SHE TOLERATED WELL. ADMINISTERED SCHEDULED MEDS. PT STATED PAIN 11/02. ADMINISTERED NORCO FOR PAIN. TOLERATED MEDS WELL. NO COMPLAINTS AT THIS TIME. WILL CONTINUE TO MONITOR.
--- NOTE | 2017-01-28 11:30 | NUR ---
CHECKED ON PT IN ROOM. RESTING COMFORTABLY IN BED. BS WAS 70. NO INSULIN NEEDED. PT DRANK ORANGE JUICE AND ATE CRACKERS. PT DENIES PAIN AT THIS TIME.
[2017-01-28 12:00] VITALS: BP 104/72
--- NOTE | 2017-01-28 12:42 | NUR ---
FAXED CONCURRENT REVIEW TO [facility] [phone] PHONE [phone] X CHANDLER [place]
--- NOTE | 2017-01-28 12:47 | NUR ---
SS NOTE: PER SHAHRAM TODD WHO SPOKE WITH PT BEDSIDE, PT WAS RECEIVE HOME HEALTH SERVICES FROM [facility] AND WANTS TO CONTINUE WITH THEIR SERVICES I SPOKE WITH FLIP FROM [facility] ([phone]). SHE STATED THAT PT WAS DISCHARGED FROM THEIR SERVICES ON DECEMBER 09 BUT THEY ARE ABLE TO ACCEPT PT BACK AND WILL FOLLOW UP WITH PT AT HOME UPON DISCHARGE.
--- NOTE | 2017-01-28 12:49 | NUR ---
* ST NOTE * Pt seen at bedside with nsg present. Bedside dysphagia and oral mechanism exams completed. See evaluation report for further details. Pt tolerating 8/8 alternating PO trials of regular solid saltine crackers as well as 7/7 alternating PO trials of thin liquid orange and apple juice respectively via a straw, all w/out s/s of aspiration. Pt exhibiting voicing WFL w/out wet or gargly vocal quality after PO intake of thin liquids via a straw. Pt and caregivers/nsg education completed regarding safe swallow compensatory strategies pt and caregivers/nsg could utilize to aid pt with swallow function to avoid aspiration PNA in the future, with pt and caregiver/nsg Lucero verbalizing understanding and agreement with clinician's recommendations. It is thus recommended pt's PO diet consistency remain as M/S textures with thin liquids for all meals. Pt does not require skilled CARDIAC SURGEON services at this time. Pt and caregivers/nsg education completed regarding results of evaluation; benefits of abiding by recommended PO diet consistency and prognosis for improvement; with pt and caregivers/nsg verbalizing understanding and agreement with clinician's recommendations. Recommend: - Continue PO diet consistency of Mechanical soft textures with thin liquids for all meals - Distal supervision during PO intake and/or setup of tray and reminders/cueing by caregivers/staff/family to assure aspiration precautions are in place 2/2 to pt's hx of aspiration PNA No further ST follow up recommended at this time. G8996 CI G8997 CH G8998 NOMS Level 1 Time In/Out 11:45 - 12:30
--- NOTE | 2017-01-28 12:52 | NUR ---
ADMINISTERED CLEOCIN AND GABAPENTIN. PT TOLERATED WELL. PT DENIES PAIN. SITTING UP AT BEDSIDE. REINFORCED INSTRUCTIONS TO CALL WHEN NEED TO GET OUT BED. CALL LIGHT WITHIN REACH AND BED IN LOW POSITION. PT HAS NO COMPLAINTS AT THIS TIME. WILL CONTINUE TO MONITOR.
--- NOTE | 2017-01-28 14:40 | NUR ---
PT IS SITTING UP IN BED RIGHT NOW. AWAKE AND ORIENTED. NO COMPLAINTS AT THIS TIME. WILL CONTINUE TO MONITOR.
[2017-01-28 16:00] VITALS: BP 101/61
--- NOTE | 2017-01-28 16:04 | NUR ---
CHECKED ON PT IN ROOM. AMBULATED TO BATHROOM WITH ASSISTANCE BY CONVENTION SERVICES DIRECTOR. WILL CONTINUE TO MONITOR PT.
--- NOTE | 2017-01-28 17:15 | NUR ---
CHECKED ON PT. RESTING COMFORTABLY IN BED. BS WAS 89. NO COVERAGE NEEDED. CHANGED EMPTY BAG OF NS 1,000ML TO NEW ONE. NS INFUSING AT 160ML/HR IV. PT HAS NO COMPLAINTS AT THIS TIME. WILL CONTINUE TO MONITOR.
[2017-01-28] MEDS: LEVOFLOXACIN 500 MG/D5W PREMIX 100 ML IV SCH (18:43)
--- NOTE | 2017-01-28 19:05 | NUR ---
ENDORSED PT REPORT TO ACCOUNT ASSISTANT NURSE AT BEDSIDE FOR CONTINUITY OF CARE. PT IN STABLE CONDITION.
--- NOTE | 2017-01-28 19:26 | NUR ---
PULMICORT 0.25MG REMOVED FROM PYXIS AND GIVEN AT 1917 , BUT CORRECT TIME WAS NOT IN EMAR UNIT 01/29/17 AT 0730
[2017-01-28 20:00] VITALS: BP 100/66
[2017-01-28] MEDS: SIMVASTATIN 10 MG TAB PO SCH (20:41)
[2017-01-28] MEDS: QUEtiapine FUMARATE 25 MG TAB PO SCH (20:41)
--- NOTE | 2017-01-28 20:44 | NUR ---
PM MEDS ADMINISTERED, PATIENT TOLERATED WELL, PATIENT RESTING IN BED, CALL LIGHT WITHIN REACH. WILL CONTINUE TO MONITOR. SAFETY MEASURES CHECKED
[2017-01-29] VITALS: BP 101/65
--- NOTE | 2017-01-29 00:05 | NUR ---
VITAL SIGNS STABLE, NO SOB OR SIGN OF DISTRESS, CALL LIGHT WITHIN REACH. WILL CONTINUE TO MONITOR
[2017-01-29] MEDS: CLINDAMYCIN 600 MG in DEXTROSE 5% 50 ML IV SCH ×4 (00:30→17:16)
--- NOTE | 2017-01-29 02:10 | NUR ---
VITAL SIGNS STABLE, NO SOB OR SIGN OF DISTRESS, CALL LIGHT WITHIN REACH. WILL CONTINUE TO MONITOR
[2017-01-29 04:00] VITALS: BP 113/70
--- NOTE | 2017-01-29 04:10 | NUR ---
VITAL SIGNS STABLE, NO SIGN OF DISTRESS, CALL LIGHT WITHIN REACH. WILL CONTINUE TO MONITOR
[2017-01-29] MEDS: HYDROcodone/APAP 7.5/325 MG 1 TAB PO PRN ×2 (04:56→12:32)
[2017-01-29] MEDS: GABAPENTIN 300 MG CAP PO SCH ×3 (04:57→21:34)
[2017-01-29] MEDS: NACL 0.9% 1,000 ML IV SCH ×4 (05:02→23:46)
[2017-01-29 05:50] LABS: BASOPHILS # (AUTO) 0.1 K/uL (0.00-0.22); EOSINOPHILS # (AUTO) 0.5 K/uL (0-0.4); EOSINOPHILS % (AUTO) 8.1 % (0.0-4.0); HEMATOCRIT 30.3 % (36-48); HEMOGLOBIN 9.4 g/dL (12.0-16.0); LYMPHOCYTES # (AUTO) 1.6 K/uL (2.5-16.5); LYMPHOCYTES % (AUTO) 24.7 % (20.5-51.1); MEAN CORPUSCULAR HEMOGLOBIN 25 pg (27-31); MEAN CORPUSCULAR HGB CONC 31 g/dL (33-37); MEAN CORPUSCULAR VOLUME 81 fL (80-94); MONOCYTES # (AUTO) 0.4 K/uL (0.8-1.0); MONOCYTES % (AUTO) 6.2 % (1.7-9.3); PLATELET COUNT (AUTO) 222 K/uL (140-450); RED BLOOD CELL COUNT(AUTO) 3.74 MIL/uL (4.20-5.40); RED CELL DISTRIBUTION WIDTH 14.6 % (11.6-13.7); WHITE BLOOD COUNT (AUTO) 6.6 K/uL (4.8-10.8)
[2017-01-29 06:20] LABS: MAGNESIUM 1.1 mg/dL (1.8-2.4); PHOSPHORUS 3.8 mg/dL (2.5-4.9)
[2017-01-29 06:31] LABS: ANION GAP 11.6 (8-16); CARBON DIOXIDE 24.8 mmol/L (21-32); POTASSIUM 4.4 mmol/L (3.5-5.1)
[2017-01-29] MEDS: BLOOD GLUCOSE MONITORING 1 DEV DEV FS SCH ×5 (06:45→21:53)
--- NOTE | 2017-01-29 07:26 | NUR ---
ENDORSED PATIENT TO DAY RN AT BEDSIDE, PATIENT IN STABLE CONDITION
--- NOTE | 2017-01-29 07:27 | NUR ---
RECEIVED REPORT FROM PM NURSE FOR CONTINUITY OF CARE. PT SITTING. INITIAL ASSESSMENT DONE. RESP EVEN AND UNLABORED. IV INTACT, NO SWELLING OR REDNESS NOTED. SKIN IS WARM AND DRY, SCABS ON RT CHRISTINE NOTED. DISCUSSED PLAN OF CARE WITH PT, VERBALIZED UNDERSTANDING. PT DENIES ANY FURTHER NEEDS AT THIS TIME. SAFETY MEASURES IN PLACED. BED LOCKED ON LOW POSITION, SIDE RAILS UP, CALL LIGHT WITHIN REACH. WILL CONTINUE TO MONITOR
--- NOTE | 2017-01-29 07:45 | NUR ---
AWAKE AND ALERT RESPONSIVE TO CAR WIPER PATIENT WITH BREAKFAST TRAY AT THIS TIME CAR WIPER TO ATTEMPT [facility] THERAPY AT A LATER TIME NO PULMONARY DISTRESS NOTED
[2017-01-29 08:00] VITALS: BP 98/60
--- NOTE | 2017-01-29 08:11 | NUR ---
01/29/17 RD INITIAL ASSESSMENT COMPLETED PLEASE REFER TO NUTRITION ASSESSMENT UNDER CARE ACTIVITY FOR ESTIMATED NUTRITIONAL NEEDS. 1. CONTINUE 60G CONSISTENT CARBOHYDRATE, MECHANICAL SOFT DIET 2. ENCOURAGE INCREASED PO INTAKE TO TOLERANCE 3. RD TO FOLLOW-UP 3-5 DAYS, MODERATE RISK BEN MCCLURE, RD
[2017-01-29] MEDS: IPRATROPIUM 0.02% 0.5 MG/2.5 ML NEBU INH PRN (08:26)
[2017-01-29] MEDS: BUDESONIDE 0.25 MG/2 ML NEBU INH SCH ×2 (08:26→19:13)
[2017-01-29 08:38] LABS: FERRITIN 191 ng/mL (15 - 150)
[2017-01-29] MEDS: LACTOBACILLUS RHAMNOSUS GG 1 EACH CAP PO SCH ×2 (08:51→17:15)
[2017-01-29] MEDS: BENAZEPRIL 10 MG TAB PO SCH (08:52)
[2017-01-29] MEDS: POTASSIUM CHLORIDE 10 MEQ TABER PO SCH ×2 (08:52→21:36)
[2017-01-29] MEDS: SPIRONOLACTONE 50 MG TAB PO SCH (08:52)
[2017-01-29] MEDS: ECOTRIN 81 MG TABEC PO SCH (08:52)
[2017-01-29] MEDS: PANTOPRAZOLE 40 MG TABEC PO SCH (08:52)
[2017-01-29] MEDS: FUROSEMIDE 40 MG TAB PO SCH ×2 (08:53→21:33)
--- NOTE | 2017-01-29 09:30 | NUR ---
TRIED TO START 20G IV FOR CT CONTRAST, PT REFUSED FURTHER ATTEMPTS. 22G IV PATENT, INFUSING WELL. NO REDNESS OR SWELLING NOTED. CT NOTIFIED, UNABLE TO USE 22G IV PER CT. MD NOTIFIED. AWAITING FOR ORDERS.
[2017-01-29] MEDS: MAG SULF 2000 MG/WATER PREMIX 50 ML IV SCH ×2 (10:07→12:49)
--- NOTE | 2017-01-29 10:08 | NUR ---
DR TOWNSEND CHANGED ORDER FOR CT WITHOUT CONTRAST.
--- NOTE | 2017-01-29 10:16 | NUR ---
PT TO CT VIA BED.
--- NOTE | 2017-01-29 10:35 | NUR ---
PT BACK FROM CT.
--- NOTE | 2017-01-29 11:23 | NUR ---
PT AMBULATED TO THE RESTROOM WITH MINIMAL ASSISTANCE. NO S/S OF SOB, DISTRESS, OR RESTLESSNESS. WILL CONTINUE TO MONITOR.
[2017-01-29 12:00] VITALS: BP 118/77
--- NOTE | 2017-01-29 12:04 | NUR ---
PHYSICAL THERAPIST AT BEDSIDE. PT AMBULATED TO THE WALKWAY WITH WALKER.
--- NOTE | 2017-01-29 12:48 | NUR ---
CM NOTE CONCURRENT REVIEW FAXED TO [facility] / FAX# [phone], ATTN: CHANDLER [phone]
[2017-01-29] MEDS ORDERED: CLIN300C2 PO (13:27)
[2017-01-29] MEDS ORDERED: LACT1.4C PO (13:27)
[2017-01-29] MEDS ORDERED: LEVO750T2 PO (13:27)
--- NOTE | 2017-01-29 14:05 | NUR ---
[facility]HRAM [facility], UNABLE TO CONTINUE SERVICES W/ PATIENT D/T AGENCY IS NOT CONTRACTED UNDER [employer]. SHAHRAM ARTEAGA FOR [employer] MADE AWARE OF PATIENT'S DC PLAN; WILL BE RECEIVING HOME HEALTH LIST CONTRACTED W/ [employer] VIA FAX. Addendum: 01/29/17 at 1521 by Angela PRESSLEY PER RONNI FROM [facility] ([phone]), THEY ARE ABLE TO ACCEPT PT AND THEY WILL SEND A NURSE TO SEE PT AT HOME TOMORROW.
--- NOTE | 2017-01-29 14:15 | NUR ---
PHYSICAL THERAPY CO-SIGN The Physical Therapy Progress Notes documented by Waiter/Waitress Room Service have been reviewed. Reviewed/Co-Signed by: Selena Webster PT Documentation Done by: Jose Elias Badillo PTA I concur with the documentation of this PROCESS INSPECTOR. Plan: continue as per plan of care if she remains in this hospital. Addendum: 01/29/17 at 1457 by Selena Webster PT Amended: Links added.
--- NOTE | 2017-01-29 14:22 | NUR ---
PT SITTING, WATCHING TV. RESP EVEN AND UNLABORED. NO S/S OF DISTRESS, SOB, OR RESTLESSNESS. DENIES ANY FURTHER NEEDS AT THIS TIME. SAFETY MEASURES IN PLACED. WILL CONTINUE TO MONITOR.
--- NOTE | 2017-01-29 15:30 | NUR ---
PT IS TO BE DISCHARGED TODAY. HOWEVER, PT STATED THAT SHE DOES NOT HAVE ANYBODY TO PICK HER UP AND SHE DOES NOT HAVE ACCESS TO HER APT/HOUSE UNTIL TOMORROW MORNING. CM NOTIFIED.
[2017-01-29 16:00] VITALS: BP 103/60
--- NOTE | 2017-01-29 16:00 | NUR ---
PER CHARGE NURSE JESSI. PT OK TO HOLD DC HOME AND STAY UNTIL TOMORROW MORNING.
--- NOTE | 2017-01-29 17:00 | NUR ---
DR DUBON AT BEDSIDE.
--- NOTE | 2017-01-29 17:01 | NUR ---
FINGER STICK GLUCOSE 76, APPLE JUICE AND APPLE SAUCE GIVEN.
[2017-01-29] MEDS: LEVOFLOXACIN 500 MG/D5W PREMIX 100 ML IV SCH (18:19)
--- NOTE | 2017-01-29 19:00 | NUR ---
PT C/O SOB, NO S/S OF DISTRESS. O2 SAT 96% ON ROOM AIR. BREATHING EVEN AND UNLABORED. BREATH SOUNDS WITH SLIGHT WHEEZING ON THE RIGHT SIDE, LEFT SIDE IS CLEAR. RT NOTIFIED PER PRN ORDERS.
[2017-01-29] MEDS: ALBUTEROL 0.083% 2.5 MG/3 ML NEBU INH PRN (19:10)
--- NOTE | 2017-01-29 19:14 | NUR ---
PATIENT COMPLAINING OF SOB AND WHEEZING ALB PRN TX GIVEN AND PULM GIVEN AHEAD OF SCHEDULED TIME. PT COND IMPROVED AFTER TX. PT STABLE NO RESP DISTRESS
--- NOTE | 2017-01-29 19:17 | NUR ---
ENDORSED CARE TO PM NURSE FOR CONTINUITY OF CARE. PT IN STABLE CONDITION.
--- NOTE | 2017-01-29 19:18 | NUR ---
RECEIVED REPORT FROM DAY NURSE, PT IN STABLE CONDITION. PT IS AAOX4, PT IS ON RA, PT HAS IV TO L WRIST 22G, INFUSING WELL, DRY AND INTACT. RESPIRATIONS ARE EVEN AND UNLABORED. PT HAS SCABS ON RIGHT CHRISTINE. BOWEL SOUNDS PRESENT IN ALL FOUR QUADRANTS. INITIAL ASSESSMENT COMPLETED, PLAN OF CARE DISCUSSED WITH PT, PT VERBALIZED UNDERSTANDING. ALL SAFETY PRECAUTIONS MET, CALL LIGHT WITHIN REACH, WILL CONTINUE TO MONITOR.
[2017-01-29] MEDS: SIMVASTATIN 10 MG TAB PO SCH (21:35)
[2017-01-29] MEDS: QUEtiapine FUMARATE 25 MG TAB PO SCH (21:36)
--- NOTE | 2017-01-29 21:53 | NUR ---
BLOOD SUGAR WAS CHECKED RESULT 86, PROVIDED SOME SNACKS. WILL CONTINUE TO MONITOR.
--- NOTE | 2017-01-29 21:55 | NUR ---
DUE MEDICATIONS GIVEN, PT TOLERATED WELL. ALL SAFETY PRECAUTIONS MET, CALL LIGHT WITHIN REACH, WILL CONTINUE TO MONITOR.
--- NOTE | 2017-01-29 23:26 | NUR ---
CHECKED IN ON PT. NO S/S OF DISTRESS NOTED. PT RESTING COMFORTABLY IN BED.ALL SAFETY PRECAUTIONS MET, CALL LIGHT WITHIN REACH, WILL CONTINUE TO MONITOR.
[2017-01-30] VITALS: BP 103/76
[2017-01-30] MEDS: HYDROcodone/APAP 7.5/325 MG 1 TAB PO PRN ×2 (00:03→05:24)
[2017-01-30] MEDS: CLINDAMYCIN 600 MG in DEXTROSE 5% 50 ML IV SCH ×2 (00:04→05:17)
--- NOTE | 2017-01-30 00:05 | NUR ---
CHECKED IN ON PT, PT RESTING COMFORTABLY IN BED. NO S/S OF DISTRESS NOTED. ALL SAFETY PRECAUTIONS MET, CALL LIGHT WITHIN REACH, WILL CONTINUE TO MONITOR.
[2017-01-30] MEDS: NACL 0.9% 1,000 ML IV SCH (01:26)
--- NOTE | 2017-01-30 02:00 | NUR ---
CHECKED IN ON PT. PT RESTING IN BED COMFORTABLY NO S/S OF DISTRESS NOTED. ALL SAFETY PRECAUTIONS MET, CALL LIGHT WITHIN REACH, WILL CONTINUE TO MONITOR.
[2017-01-30] MEDS: GABAPENTIN 300 MG CAP PO SCH (05:17)
--- NOTE | 2017-01-30 05:24 | NUR ---
PT STATED SHE IS HAVING PAIN IN HER SHOULDER. PT MEDICATED PER MD ORDERS. WILL REASSESS IN ONE HOUR. ALL SAFETY PRECAUTIONS MET.
--- NOTE | 2017-01-30 05:26 | NUR ---
DUE MEDICATION GIVEN, CHECKED PTS IV AND IV IS STARTING TO LEAK, IV NO LONGER PATENT AND D/C.
--- NOTE | 2017-01-30 06:12 | NUR ---
ASKED PT WHEN SHE HAD PNEUMONIA VACCINE, SHE SAID 3 YEARS AGO.
[2017-01-30 07:20] LABS: ANION GAP 11.8 (8-16); CARBON DIOXIDE 25.9 mmol/L (21-32); POTASSIUM 4.7 mmol/L (3.5-5.1)
--- NOTE | 2017-01-30 07:22 | NUR ---
ENDORSED PLAN OF CARE TO DAY NURSE, PT IN STABLE CONDITION, NO S/S OF DISTRESS NOTED. ALL SAFETY PRECAUTIONS MET, CALL LIGHT WITHIN REACH.
--- NOTE | 2017-01-30 07:22 | NUR ---
RECEIVED REPORT FROM PM NURSE FOR CONTINUITY OF CARE. PT AAO, SITTING ON THE BED. INITIAL ASSESSMENT DONE. RESP EVEN AND UNLABORED. IV INTACT, NO SWELLING OR REDNESS NOTED. SKIN IS WARM AND DRY. DISCUSSED PLAN OF CARE WITH PT, VERBALIZED UNDERSTANDING. PT DENIES ANY FURTHER NEEDS AT THIS TIME. SAFETY MEASURES IN PLACED. BED LOCKED ON LOW POSITION, SIDE RAILS UP, CALL LIGHT WITHIN REACH. WILL CONTINUE TO MONITOR.
--- NOTE | 2017-01-30 07:50 | NUR ---
AWAKE AND ALERT NO PULMONARY DISTRESS NOTED PATIENT WITH BREAKFAST TRAY AT THIS TIME SALES AND SERVICE TECHNICIAN TO ATTEMPT HHN THERAPY AT A LATER TIME
[2017-01-30 08:00] VITALS: BP 104/77
[2017-01-30] MEDS: LACTOBACILLUS RHAMNOSUS GG 1 EACH CAP PO SCH (08:12)
[2017-01-30] MEDS: SPIRONOLACTONE 50 MG TAB PO SCH (08:12)
[2017-01-30] MEDS: POTASSIUM CHLORIDE 10 MEQ TABER PO SCH (08:12)
[2017-01-30] MEDS: FUROSEMIDE 40 MG TAB PO SCH (08:12)
[2017-01-30] MEDS: PANTOPRAZOLE 40 MG TABEC PO SCH (08:13)
[2017-01-30] MEDS: ECOTRIN 81 MG TABEC PO SCH (08:13)
[2017-01-30] MEDS: BENAZEPRIL 10 MG TAB PO SCH (08:13)
--- NOTE | 2017-01-30 08:25 | NUR ---
AWAKE AND ALERT PATIENT IN PROCESS OF DISCHARGING FROM FACILITY PATIENT C/O OF SOB ASSESSMENT DONE HHN PRN THERAPY WITH UD ALBUTEROL AND UD ATROVENT GIVEN AT THIS TIME FOLLOWED BY PULMICORT 0.25 mg PATIENT REFUSED BRONCHODILATOR TX AFTER 1 MIN DUE TO PATIENT'S TRANSPORTATION IN ROOM AT THIS TIME UD PULMICORT 0.25 mg RETURNED TO [facility]
--- NOTE | 2017-01-30 08:30 | NUR ---
DISCHARGED TEACHING, INSTRUCTIONS GIVEN TO PT BY PM NURSE. PT DENIES ANY FURTHER QUESTIONS. DC'ED IV, CATH TIP INTACT, NO BLEEDING NOTED. ARMBAND REMOVED. BELONGING GIVEN TO PT. VSS. TOLERATED BREAKFAST AND AM MEDS. PT FRIEND, MARANDA, AT BEDSIDE. PT AMBULATED WITH STEADY GAIT IN THE ROOM, NO S/S OF DISTRESS, OR SOB. ESCORTED OUT TO THE LOBBY VIA WHEELCHAIR.
--- NOTE | 2017-01-30 08:45 | NUR ---
PT NOTE 829 UNABLE TO SEE Pt FOR PT TX; Pt HAS BEEN DISCHARGED FROM HOSPITAL EARLY AM PER RN. PVE(1)
[2017-01-30] MEDS: ALBUTEROL 0.083% 2.5 MG/3 ML NEBU INH PRN (09:02)
[2017-01-30 11:34] LABS: TRANSFERRIN 315 mg/dL (200-370)
== END 2017-01-30 08:30 | disposition home health service (06) | DRG 133 ==
LOC: MED 13:46 → MTU 18:02
PROVIDERS: ADMIT Family Medicine; ATTEND Family Medicine
DX: J96.01 Acute respiratory failure with hypoxia (principal); N17.0 Acute kidney failure with tubular necrosis; J69.0 Pneumonitis due to inhalation of food and vomit; G93.41 Metabolic encephalopathy; E87.0 Hyperosmolality and hypernatremia; E87.2 Acidosis; D68.59 Other primary thrombophilia; D64.9 Anemia, unspecified; I10 Essential (primary) hypertension; M62.82 Rhabdomyolysis; F31.9 Bipolar disorder, unspecified; W18.39XA Other fall on same level, initial encounter; E11.42 Type 2 diabetes mellitus with diabetic polyneuropathy; E87.8 Other disorders of electrolyte and fluid balance, not elsewhere classified; E86.0 Dehydration; E11.51 Type 2 diabetes mellitus with diabetic peripheral angiopathy without gangrene; E83.42 Hypomagnesemia; D35.01 Benign neoplasm of right adrenal gland; Z86.73 Personal history of transient ischemic attack (TIA), and cerebral infarction without residual deficits; Z88.2 Allergy status to sulfonamides; Z90.49 Acquired absence of other specified parts of digestive tract; Z79.82 Long term (current) use of aspirin; Z79.899 Other long term (current) drug therapy; Z88.1 Allergy status to other antibiotic agents; Z88.0 Allergy status to penicillin; Y92.092 Bedroom in other non-institutional residence as the place of occurrence of the external cause; Y93.89 Activity, other specified; Y99.8 Other external cause status; Z79.4 Long term (current) use of insulin; Z79.84 Long term (current) use of oral hypoglycemic drugs
CPT/HCPCS: 36415; 36600; 70450; 71010; 73630; 76770; 80048; 80053; 80305; 81001; 82140; 82150; 82550; 82553; 82728; 82803; 82948; 83036; 83540; 83605; 83690; 83735; 83880; 84100; 84436; 84439; 84443; 84479; 84484; 85025; 85045; 85610; 85730; 87040; 87081; 87086; 92526; 93005; 94640; 96361; 96365; 96375; 97110; 97116; 97530; 99291; J1630; J1956; J2060; J2930; J3475; J3490; J7030; J7060; J7613; J7626; J7644

== ENCOUNTER 2019-06-20 20:23 | Inpatient (IN) | payer MEDICAID, MEDICARE, OTHER ==
[~2019-06-20] VITALS: Ht 165.1 cm; Wt 85.7 kg
[2019-06-20 20:23] VITALS: BP 60/33
[~2019-06-20 20:23] MED LIST changes: +ASPI-1271 PO; -ASPI81TA28 PO; +CLIN300C2 PO; +LACT1.4C PO; +LEVO750T2 PO; -POTA10TA10 PO; +POTA10TE30 PO
--- NOTE | 2019-06-20 20:23 | NUR ---
1L NORMAL SALINE BOLUS RUNNING.
--- NOTE | 2019-06-20 20:23 | NUR ---
2021- 2MG OF NARCAN GIVEN.
--- NOTE | 2019-06-20 20:23 | NUR ---
Dr. Haile examining patient.
--- NOTE | 2019-06-20 20:23 | NUR ---
PT IRVIN ALS. TAKEN TO BED 10
[2019-06-20] MEDS ORDERED: NALOXONE 0.4 MG/ML VIAL IVP ONE (20:30)
[2019-06-20] MEDS ORDERED: NACL 0.9% 1,000 ML IV ONE ×3 (20:30→21:55)
--- NOTE | 2019-06-20 20:56 | NUR ---
EKG PERFORMED AT BEDSIDE
--- NOTE | 2019-06-20 21:26 | NUR ---
LAB AT BEDSIDE DRAWING BLOOD
[2019-06-20 21:53] LABS: BASOPHILS % (AUTO) 0.2 % (0.0-2.0); EOSINOPHILS # (AUTO) 0.1 K/uL (0-0.4); EOSINOPHILS % (AUTO) 1.6 % (0.0-4.0); HEMATOCRIT 27.3 % (36-48); HEMOGLOBIN 8.5 g/dL (12.0-16.0); LYMPHOCYTES # (AUTO) 1.2 K/uL (2.5-16.5); LYMPHOCYTES % (AUTO) 14.5 % (20.5-51.1); MEAN CORPUSCULAR HEMOGLOBIN 26 pg (27-31); MEAN CORPUSCULAR HGB CONC 31 g/dL (33-37); MEAN CORPUSCULAR VOLUME 84.1 fL (80-94); MONOCYTES # (AUTO) 0.6 K/uL (0.8-1.0); MONOCYTES % (AUTO) 7.4 % (1.7-9.3); NEUTROPHILS # (AUTO) 6.4 K/uL (1.8-7.7); NEUTROPHILS % (AUTO) 76.3 % (42.2-75.2); PLATELET COUNT (AUTO) 315 K/uL (140-450); RED BLOOD CELL COUNT(AUTO) 3.24 MIL/uL (4.20-5.40); RED CELL DISTRIBUTION WIDTH 17.1 % (11.6-13.7); WHITE BLOOD COUNT (AUTO) 8.4 K/uL (4.8-10.8)
[2019-06-20 22:29] LABS: APPEARANCE,URINE CLEAR (CLEAR); BILIRUBIN,URINE NEGATIVE (NEGATIVE); BLOOD, URINE NEGATIVE (NEGATIVE); COLOR,URINE ORANGE (YELLOW); LEUKOCYTE ESTERASE ,URINE NEGATIVE (NEGATIVE); NITRITE, URINE POSITIVE (NEGATIVE); PH,URINE 5.5 (5.0-9.0); UGLUCOSE TRACE (NEGATIVE)
[2019-06-20 22:30] LABS: ALBUMIN 2.4 g/dL (3.4-5.0); ANION GAP 12.6 (8-16); ASPARTATE AMINOTRANSFERASE 13 U/L (15-37); CARBON DIOXIDE 25.4 mmol/L (21-32); CHLORIDE 110 mmol/L (98-107); CREATININE 1.3 mg/dL (0.6-1.3); GLUCOSE 100 mg/dL (74-106); SODIUM SERUM 143 mmol/L (136-145); TOTAL BILIRUBIN 0.3 mg/dL (0.0-1.0); UREA NITROGEN, BLOOD 38 mg/dL (7-18)
[2019-06-20] MEDS ORDERED: ATROPINE 1 MG/10 ML SYR IVP ONE (22:34)
--- NOTE | 2019-06-20 22:34 | NUR ---
RECEIVED VERBAL CONFIRMATION FOR PLACEMENT OF CENTRAL LINE
[2019-06-20] MEDS ORDERED: NOREPINEPHRINE 4 MG in DEXTROSE 5% 250 ML IV ONE (22:35)
[2019-06-20] MEDS ORDERED: ATROPINE 0.4 MG/ML VIAL IVP ONE (22:35)
[2019-06-20] MEDS ORDERED: NOREPINEPHRINE 4 MG/4 ML VIAL IV ONE (22:42)
--- NOTE | 2019-06-20 23:18 | NUR ---
PT AWAKE. PROVIDED SNACKS. DENIES ANY HEADACHE, DIZZINESS OR CHEST PAIN. NO SOB/DIFFICULTY BREATHING NOTED. WILL CONTINUE TO MONITOR.
[2019-06-20 23:27] LABS: BARBITURATE, URINE NEG. ng/ml (NEG <=200); BENZODIAZEPINE, URINE NEG. ng/mL (NEG <=200); CANNABINOID, URINE NEG. ng/mL (NEG <=50); COCAINE, URINE NEG. ng/mL (NEG <=300); OPIATE, URINE NEG. ng/mL (NEG <=2000); PHENCYCLIDINE SCREEN,URINE NEG. ng/mL (NEG <=25)
[2019-06-20 23:50] LABS: RBC,URINE 0-5 /HPF (0-5); WBC,URINE 0-5 /HPF (0-5)
[2019-06-20] MEDS ORDERED: LEVOFLOXACIN 500 MG/D5W PREMIX 100 ML IV ONE (23:50)
[2019-06-21] VITALS (7 sets, daily range): BP systolic 104–156; BP diastolic 61–74
--- NOTE | 2019-06-21 00:13 | NUR ---
TITRATED LEVOPHED TO 1.5MCG/MIN. BP 152/68, HR 48. ERMD AWARE. WILL CONTINUE TO MONITOR.
--- NOTE | 2019-06-21 00:29 | NUR ---
PT ASLEEP ON BED. NO SIGNS OF DISTRESS. WILL CONTINUE TO MONITOR.
--- NOTE | 2019-06-21 00:48 | NUR ---
RESIDENT, DR ROJO AT BEDSIDE ASSESSING PT
[2019-06-21] MEDS ORDERED: NACL 0.9% 1,000 ML IV SCH (01:39)
[2019-06-21] MEDS ORDERED: ONDANSETRON 4 MG/2 ML VIAL IM/IVP PRN (01:40)
[2019-06-21] MEDS ORDERED: ACETAMINOPHEN 325 MG TAB PO PRN (01:40)
[2019-06-21] MEDS ORDERED: DOCUSATE SODIUM 100 MG GELCAP PO PRN (01:40)
--- NOTE | 2019-06-21 01:42 | NUR ---
PT TAKEN TO CT
--- NOTE | 2019-06-21 02:03 | NUR ---
PT RETURNED FROM CT
[2019-06-21 02:10] LABS: MAGNESIUM 1.8 mg/dL (1.8-2.4); PHOSPHORUS 3.2 mg/dL (2.5-4.9); THYROID STIMULATING HORMONE 2.93 uIU/mL (0.34-3.74)
[2019-06-21 02:18] LABS: PROTHROMBIN TIME 10.6 secs (10.8-13.4)
--- NOTE | 2019-06-21 02:25 | NUR ---
RECEIVED PT VIA GURNEY FROM ER. MONITORS ATTACHED.SR TO SB NOTED ON MONITOR.PT AWAKE ALERT AND ORIENTED X 3,FOLLOWS COMMANDS. ON ROOM AIR.TOLERATING.NO SOB NOTED.DENIES N/V.CONTINENT OF URINE.SKIN INTACT.DENIES PAIN AT THIS TIME.WITH TLC TO RT IJ INTACT.WITH GOOD BLOOD RETURN TO ALL PORTS INFUSING LEVOPHED 4MG IN 250ML D5W AT 1.5MCG/MIN(5.62ML/HR).BP 112/65 AT THIS TIME.LEVOPHED ON HOLD AT THIS TIME.WILL MONITOR BP.PT ALSO HAS PERIPHERAL IV TO RT F/A G 22 SALINE LOCK AND IO TO RLE.SKIN INTACT
--- NOTE | 2019-06-21 02:30 | NUR ---
PT ADMITTED TO ICU BED #6. TRANSFERRED PT VIA RNEY WITH BETTY RN; STABLE CONDITION. REPORT GIVEN TO RECEIVING RN. TRANSFER OF CARE AT THIS TIME.
--- NOTE | 2019-06-21 02:35 | NUR ---
BP 115/60 AT THIS TIME.LEVOPHED STILL ON HOLD AT THIS TIME.
[2019-06-21 02:44] LABS: SALICYLATE < 2.8 mg/dL (2.8-20.0)
[2019-06-21 02:45] LABS: ACETAMINOPHEN 1.4 ug/ml (10-30)
[2019-06-21] MEDS ORDERED: MECLIZINE 25 MG TAB PO PRN (03:10)
[2019-06-21] MEDS: HYDROcodone/APAP 5/325 MG 1 TAB TAB PO PRN ×5 (03:17→23:06)
[2019-06-21] MEDS ORDERED: METF850T PO (03:30)
[2019-06-21] MEDS ORDERED: INSULIN LISPRO SLIDING SCALE 100 UNITS/ML VIAL SUBQ PRN (03:35)
[2019-06-21] MEDS ORDERED: DEXTROSE 50% 50 ML SYR IVP PRN (03:35)
[2019-06-21] MEDS ORDERED: BISACODYL 5 MG TABEC PO PRN (03:35)
--- NOTE | 2019-06-21 04:17 | NUR ---
PT C/O PAIN TO BACK, NORCO ADMIN ORDERED WITH GOOD EFFECT; PER PT, ITS LESS PAINFUL NOW 2/10
[2019-06-21 06:45] LABS: HEMATOCRIT 27.5 % (36-48); HEMOGLOBIN 8.8 g/dL (12.0-16.0); MEAN CORPUSCULAR HEMOGLOBIN 27 pg (27-31); MEAN CORPUSCULAR HGB CONC 32 g/dL (33-37); MEAN CORPUSCULAR VOLUME 84.5 fL (80-94); PLATELET COUNT (AUTO) 314 K/uL (140-450); RED BLOOD CELL COUNT(AUTO) 3.25 MIL/uL (4.20-5.40); RED CELL DISTRIBUTION WIDTH 17.1 % (11.6-13.7)
[2019-06-21] MEDS: BLOOD GLUCOSE MONITORING 1 DEV DEV FS SCH ×4 (06:58→20:43)
[2019-06-21] MEDS: PANTOPRAZOLE 40 MG TABEC PO SCH (06:58)
[2019-06-21 07:17] LABS: ANION GAP 14.2 (8-16); CHLORIDE 111 mmol/L (98-107); CHOL/HDL RATIO 2.1 (1-4.5); CREATININE 1.1 mg/dL (0.6-1.3); GLUCOSE 85 mg/dL (74-106); POTASSIUM 4.2 mmol/L (3.5-5.1); SODIUM SERUM 145 mmol/L (136-145); UREA NITROGEN, BLOOD 36 mg/dL (7-18)
[2019-06-21 07:18] LABS: EOSINOPHILS % (MANUAL) 1 % (0-4); LYMPHOCYTES % (MANUAL) 18 % (20-46); MONOCYTES % (MANUAL) 7 % (5-12)
--- NOTE | 2019-06-21 07:30 | NUR ---
RECEIVED BEDSIDE REPORT FROM MACHINE RECORDS UNITS SUPERVISOR RN. PT IS AAOX3, ABLE TO MAKE NEEDS KNOWN, FOLLOWS COMMANDS. DENIES PAIN. AFEBRILE. NORMAL SINUS RHYTHM ON MONITOR. S1 S2 HEARD. CAP REFILL < 2 SEC. PULSES PALPABLE TO ALL EXTREMITIES. PT IS ON ROOM AIR, LUNGS SOUND CLEAR BILATERALLY. BREATHING EVEN AND UNLABORED. NO SIGNS OF RESPIRATORY DISTRESS AT THIS TIME. ABD SOFT, NONTENDER W/ ACTIVE BOWEL SOUNDS. CENTRAL LINE TLC TO RIGHT IJ INTACT AND PATENT, RUNNING IVF NS AT 40 ML/HR. PT IS CONTINENT, VOIDED 400 ML DARK YELLOW URINE USING BEDPAN. SKIN IS DRY AND WARM TO TOUCH. HOB 30 DEGREES, BED IN LOWEST POSITION LOCKED, CALL LIGHT WITHIN REACH. NO SIGNS OF DISTRESS NOTED. WILL CONTINUE TO MONITOR.
--- NOTE | 2019-06-21 07:45 | NUR ---
BREAKFAST PROVIDED. PT ABLE TO EAT INDEPENDENTLY. NO SIGNS OF DISTRESS NOTED. SAFETY MEASURES ENSURED AND NEEDS WELL ATTENDED. WILL CONTINUE TO MONITOR.
--- NOTE | 2019-06-21 08:40 | NUR ---
DR. COREA AND RESIDENT GROUP IN TO SEE PT. WILL FOLLOW UP ON ORDERS.
--- NOTE | 2019-06-21 09:18 | NUR ---
PATIENT HAS BEEN SCREENED AND CATEGORIZED MODERATE NUTRITION RISK. PATIENT WILL BE SEEN WITHIN 3-5 DAYS OF ADMISSION. 06/23/19 06/25/[address]
--- NOTE | 2019-06-21 09:27 | NUR ---
PHYSICAL THERAPY AT BEDSIDE. VSS. NO S/SX OF DISTRESS NOTED.
[2019-06-21] MEDS: ECOTRIN 81 MG TABEC PO SCH (09:47)
[2019-06-21] MEDS: metFORMIN 500 MG TAB PO SCH ×2 (09:47→16:19)
[2019-06-21] MEDS: GABAPENTIN 300 MG CAP PO SCH ×2 (09:47→20:45)
--- NOTE | 2019-06-21 11:31 | NUR ---
SENIOR MILITARY ANALYST AT BEDSIDE FOR ECHOCARDIOGRAM.
--- NOTE | 2019-06-21 12:07 | NUR ---
DR. WREN IN TO SEE AND EXAMINE PT. WILL FOLLOW UP ON ORDERS.
--- NOTE | 2019-06-21 12:22 | NUR ---
PT SEEN AND EXAMINED BY . NO NEW ORDER RECEIVED AT THIS TIME.
--- NOTE | 2019-06-21 15:24 | NUR ---
NO CHANGE IN CONDITION AT THIS TIME. PT IS ON ROOM AIR, RESTING IN BED. VSS. NO C/O PAIN. NO SIGNS OF ACUTE DISTRESS. SAFETY PRECAUTIONS IN PLACE. CALL LIGHT WITHIN REACH. WILL CONTINUE TO MONITOR.
--- NOTE | 2019-06-21 16:19 | NUR ---
PT C/O BACK PAIN 11/02, WILL ADMINISTER NORCO ORDERED.
--- NOTE | 2019-06-21 16:53 | NUR ---
DISCHARGE PLANNING: POST STABILIZATION FORM FAXED TO [employer] [phone].
--- NOTE | 2019-06-21 17:49 | NUR ---
PT HAVING DINNER, CCHO 60 GM DIET. VSS. NO SIGNS OF DISTRESS AT THIS TIME. WILL CONTINUE TO MONITOR.
--- NOTE | 2019-06-21 18:50 | NUR ---
PT TRANSFERRED TO TELE ROOM 125B. REPORT GIVEN TO DAIN HALE AT BEDSIDE. PT IS IN STABLE CONDITION.
--- NOTE | 2019-06-21 20:00 | NUR ---
RECEIVED PT FROM CHARGE NURSEHEBERT. PT IN STABLE CONDITION.
[2019-06-21] MEDS: ALBUTEROL SULFATE/IPRATROPIU 3 ML SOL IH PRN (20:27)
[2019-06-21] MEDS: BUDESONIDE 0.5 MG/2 ML NEBU INH SCH (20:27)
[2019-06-21] MEDS: methylPREDNISolone SS 40 MG/ML VIAL IVP SCH (20:44)
[2019-06-21] MEDS: ATORVASTATIN 20 MG TAB PO SCH (20:45)
[2019-06-21] MEDS: MORPHINE SULFATE 2 MG/ML SYR IVP PRN (20:45)
[2019-06-21] MEDS: QUEtiapine FUMARATE 25 MG TAB PO SCH (20:45)
--- NOTE | 2019-06-21 20:46 | NUR ---
GIVEN SOLU-MEDROL, LIPITOR, GABAPENTIN, SEROQUEL, AND HEPARIN. PT C/O OF LEG PAIN, 01/02, GIVEN MORPHINE MD ORDERED. PT TOLERATED WELL.
--- NOTE | 2019-06-21 23:06 | NUR ---
PT C/O OF LEG PAIN, 11/02, GIVEN NORCO MD ORDERED. PT TOLERATED WELL.
[2019-06-22] VITALS: BP 114/56
--- NOTE | 2019-06-22 00:09 | NUR ---
VS CHECKED, WITHIN PT'S BASELINE, BED IN LOW POSITION, CALL LIGHT WITHIN REACH.
[2019-06-22] MEDS: MORPHINE SULFATE 2 MG/ML SYR IVP PRN ×3 (02:55→18:17)
--- NOTE | 2019-06-22 02:55 | NUR ---
PT C/O 10/10 PAIN, CRYING. GIVEN MORPHINE MD ORDERED. PT TOLERATED WELL.
[2019-06-22 04:00] VITALS: BP 131/75
--- NOTE | 2019-06-22 04:05 | NUR ---
VS CHECKED, WITHIN PT'S BASELINE. WILL CONTINUE TO MONITOR
[2019-06-22 05:58] LABS: MAGNESIUM 1.8 mg/dL (1.8-2.4); PHOSPHORUS 4.1 mg/dL (2.5-4.9)
[2019-06-22 06:00] LABS: ANION GAP 11.8 (8-16); CARBON DIOXIDE 25.6 mmol/L (21-32); CHLORIDE 108 mmol/L (98-107); GLUCOSE 130 mg/dL (74-106); POTASSIUM 5.4 mmol/L (3.5-5.1); SODIUM SERUM 140 mmol/L (136-145); UREA NITROGEN, BLOOD 30 mg/dL (7-18)
[2019-06-22 06:01] LABS: EOSINOPHILS % (AUTO) 0.3 % (0.0-4.0); HEMATOCRIT 29.7 % (36-48); HEMOGLOBIN 9.4 g/dL (12.0-16.0); LYMPHOCYTES # (AUTO) 0.6 K/uL (2.5-16.5); LYMPHOCYTES % (AUTO) 7.2 % (20.5-51.1); MEAN CORPUSCULAR HEMOGLOBIN 27 pg (27-31); MEAN CORPUSCULAR HGB CONC 32 g/dL (33-37); MEAN CORPUSCULAR VOLUME 83.8 fL (80-94); MONOCYTES # (AUTO) 0.1 K/uL (0.8-1.0); MONOCYTES % (AUTO) 1.2 % (1.7-9.3); NEUTROPHILS # (AUTO) 7.2 K/uL (1.8-7.7); NEUTROPHILS % (AUTO) 91.3 % (42.2-75.2); PLATELET COUNT (AUTO) 328 K/uL (140-450); RED BLOOD CELL COUNT(AUTO) 3.55 MIL/uL (4.20-5.40); RED CELL DISTRIBUTION WIDTH 16.8 % (11.6-13.7); WHITE BLOOD COUNT (AUTO) 7.9 K/uL (4.8-10.8)
[2019-06-22] MEDS: PANTOPRAZOLE 40 MG TABEC PO SCH (06:02)
[2019-06-22] MEDS: HYDROcodone/APAP 5/325 MG 1 TAB TAB PO PRN (06:02)
[2019-06-22] MEDS: BLOOD GLUCOSE MONITORING 1 DEV DEV FS SCH ×4 (06:17→21:06)
--- NOTE | 2019-06-22 06:17 | NUR ---
BS CHECKED, 111. NO INSULIN COVERAGE NEEDED. PT IN STABLE CONDITION.
--- NOTE | 2019-06-22 07:15 | NUR ---
RECEIVED PT FROM OVERHEAD CRANE INSPECTOR NURSE, LACY, PT IS AWAKE AND ALERT AND ON ROOM AIR, LYING WITH SIDE RAILS UP AND CALL LIGHT WITHIN REACH, PT HAS A RT IJ TRIPLE LUMEN ON SALINE LOCK AND A RT IV LINE ON THE FA G. 22 ON SALINE LOC, NO SIGN OF DISTRESS NOTED AND WILL CONTINUE TO MONITOR PT.
[2019-06-22 08:00] VITALS: BP 142/80
[2019-06-22 08:09] LABS: FOLIC ACID 7.5 ng/mL (>3.0)
[2019-06-22] MEDS: LEVOFLOXACIN 500 MG/D5W PREMIX 100 ML IV SCH (08:15)
[2019-06-22] MEDS: methylPREDNISolone SS 40 MG/ML VIAL IVP SCH ×2 (08:15→21:05)
[2019-06-22] MEDS: metFORMIN 500 MG TAB PO SCH ×2 (08:15→16:10)
[2019-06-22] MEDS: ECOTRIN 81 MG TABEC PO SCH (08:16)
[2019-06-22] MEDS: GABAPENTIN 300 MG CAP PO SCH ×2 (08:16→21:03)
--- NOTE | 2019-06-22 08:16 | NUR ---
PT WAS GIVEN THE SCHEDULED AM MEDICATIONS, VIA ORAL AND IVPB, PARAMETERS CHECKED AND TOLERATED IT, WILL MONITOR PT.
[2019-06-22] MEDS: ALBUTEROL SULFATE/IPRATROPIU 3 ML SOL IH PRN ×2 (09:54→20:37)
[2019-06-22] MEDS: BUDESONIDE 0.5 MG/2 ML NEBU INH SCH ×2 (10:03→20:33)
--- NOTE | 2019-06-22 10:42 | NUR ---
PT IS AMBULATING WITH THE WALKER WITH THE PHYSICAL THERAPIST ON THE HALLWAY, NO SOB NOTED.
--- NOTE | 2019-06-22 10:59 | NUR ---
DR. BARNEY IS TALKING TO PT NOW REGARDING PT'S CONDITION AND PT IS STATING THAT SHE FEELS BETTER NOW AND STATING THAT SHE IS WALKING WITH WALKER BUT STILL TENDS TO FALL AND DR. BARNEY IS GIVING TEACHING TO PT REGARDING SAFETY AND EFFECTS OF THE MEDICATIONS ON HER BODY AND PT VERBALIZED UNDERSTANDING.
[2019-06-22 12:00] VITALS: BP 138/77
[2019-06-22] MEDS ORDERED: SODIUM POLYSTYRENE 15 GM/60 ML UDBTL PO SCH (12:00)
[2019-06-22] MEDS ORDERED: INFLUENZA VACCINE QUAD 0.5 ML SYR IMVAC PRN (13:05)
[2019-06-22] MEDS ORDERED: PNEUMOCOCCAL VACCINE 23 MCG/0.5 ML VIAL IMVAC SCH (13:05)
--- NOTE | 2019-06-22 13:22 | NUR ---
PT WAS GIVEN KAYEXALATE 120 ML NOW, TEACHING WAS GIVEN FOR THE SIDE EFFECTS AND REASON FOR THE NEED TO TAKE THE MEDICINE AND PT VERBALIZED UNDERSTANDING.
[2019-06-22 16:00] VITALS: BP 138/77
--- NOTE | 2019-06-22 16:10 | NUR ---
BLOOD GLUCOSE CHECK DONE TO PT AND RESULT IS 124, NO INSULIN COVERAGE NEEDED, PT WAS GIVEN METFORMIN.
[2019-06-22] MEDS ORDERED: CLOPIDOGREL 75 MG TAB PO SCH (17:35)
--- NOTE | 2019-06-22 18:17 | NUR ---
PT WAS GIVEN THE SCHEDUL;ED ORAL MEDICATION AND C/O PAIN RATE OF 8/10 AND PAIN MEDICATION WAS GIVEN VIA PUSH, WILL RE-ASSESS PAIN AND MONITOR PT.
[2019-06-22 20:00] VITALS: BP 165/80
--- NOTE | 2019-06-22 20:00 | NUR ---
RECEIVED REPORT OF PT IN STABLE CONDITION.PT IS AWAKE,ALERT AND ORIENTED.RESP UNLABORED .TELE ON AND SHOWING SR.NO C/O PAIN NOW.CALL LIGHT IN REACH.CARE PLAN DISCUSSED ,PT VERBALIZED UNDERSTANDING.WILL CONTINUE MONITORING.
[2019-06-22] MEDS: ACETYLCYSTEINE 10% (100 MG/ML) 100 MG/ML VIAL INH PRN (20:37)
--- NOTE | 2019-06-22 20:48 | NUR ---
RECEIVED PT ON ROOM AIR WITH SP02 OF 97% AND A WHEEZING BREATH SOUNDS ON THE UPPER LOBES. NO RESPIRATORY DISTRESS NOTED AT THIS TIME. HHN TX GIVEN ORDERED WITH NO ADVERSE REACTION. WILL CONTINUE TO MONITOR PT.
[2019-06-22] MEDS: ATORVASTATIN 20 MG TAB PO SCH (21:03)
[2019-06-22] MEDS: QUEtiapine FUMARATE 25 MG TAB PO SCH (21:03)
[2019-06-23] VITALS: BP 150/79
--- NOTE | 2019-06-23 | NUR ---
EARLIER HAD C/O SUNSHINE.NORCO PO GIVEN.NO C/O PAIN NOW.HR IS SR/SA.CALL LIGHT IN REACH.WILL CONTINUE MONITORING. Addendum: 06/23/19 at 0336 by Starla Sigala RN EARLIER HAD C/O PAIN .....................................................WILL CONT.MONITORING.
--- NOTE | 2019-06-23 | NUR ---
LYING ON BED .NO DISTRESS NOTED NOW HR IS SR/SA.WILL CONTINUE MONITORING.CALL LIGHT IN REACH.
[2019-06-23] MEDS: HYDROcodone/APAP 5/325 MG 1 TAB TAB PO PRN ×2 (00:33→10:09)
[2019-06-23 04:00] VITALS: BP 158/74
--- NOTE | 2019-06-23 04:30 | NUR ---
SLEEPING.BP =160/74 AT 0400.RECHECKED IT WAS 158/74.HR IS SB/SA.NO DISTRESS NOTED AT THIS TIME.CALL LIGHT IN REACH.
[2019-06-23 06:15] LABS: CHLORIDE 106 mmol/L (98-107); CREATININE 0.8 mg/dL (0.6-1.3); GLUCOSE 137 mg/dL (74-106); POTASSIUM 4.5 mmol/L (3.5-5.1); SODIUM SERUM 139 mmol/L (136-145); UREA NITROGEN, BLOOD 29 mg/dL (7-18)
[2019-06-23 06:21] LABS: HEMATOCRIT 28.9 % (36-48); HEMOGLOBIN 9.1 g/dL (12.0-16.0); LYMPHOCYTES # (AUTO) 0.7 K/uL (2.5-16.5); LYMPHOCYTES % (AUTO) 6.1 % (20.5-51.1); MEAN CORPUSCULAR HEMOGLOBIN 26 pg (27-31); MEAN CORPUSCULAR HGB CONC 32 g/dL (33-37); MEAN CORPUSCULAR VOLUME 83.1 fL (80-94); MONOCYTES # (AUTO) 0.2 K/uL (0.8-1.0); MONOCYTES % (AUTO) 2.2 % (1.7-9.3); NEUTROPHILS # (AUTO) 10.1 K/uL (1.8-7.7); NEUTROPHILS % (AUTO) 91.7 % (42.2-75.2); PLATELET COUNT (AUTO) 337 K/uL (140-450); RED BLOOD CELL COUNT(AUTO) 3.48 MIL/uL (4.20-5.40); RED CELL DISTRIBUTION WIDTH 16.8 % (11.6-13.7)
[2019-06-23 06:30] LABS: ANION GAP 11.7 (8-16); CARBON DIOXIDE 25.8 mmol/L (21-32)
[2019-06-23 06:31] LABS: MAGNESIUM 1.8 mg/dL (1.8-2.4); PHOSPHORUS 3.4 mg/dL (2.5-4.9)
[2019-06-23] MEDS: ACETYLCYSTEINE 10% (100 MG/ML) 100 MG/ML VIAL INH PRN (06:58)
[2019-06-23] MEDS: ALBUTEROL SULFATE/IPRATROPIU 3 ML SOL IH PRN (06:58)
[2019-06-23] MEDS: BUDESONIDE 0.5 MG/2 ML NEBU INH SCH (06:58)
[2019-06-23] MEDS: BLOOD GLUCOSE MONITORING 1 DEV DEV FS SCH ×2 (06:59→12:18)
[2019-06-23] MEDS: PANTOPRAZOLE 40 MG TABEC PO SCH (06:59)
--- NOTE | 2019-06-23 07:01 | NUR ---
NQ=058 NO COVERAGE NEEDED.NO C/O PAIN OR DISCOMFORT NOW.
--- NOTE | 2019-06-23 07:36 | NUR ---
REPORT GIVEN TO DEXTER SOLOMON RN.PT'S CONDITION IS STABLE.
--- NOTE | 2019-06-23 07:38 | NUR ---
RECEIVED REPORT FROM NIGHT RN. PT RESTING IN BED. AAOX4. NO S/S OF ACUTE DISTRESS. PT DENIES PAIN. IV SITE PATENT AND INTACT. CALL LIGHT WITHIN REACH. SAFETY MEASURES ENSURED. WILL CONTINUE TO MONITOR.
[2019-06-23 08:00] VITALS: BP 164/79
[2019-06-23] MEDS ORDERED: CLOP75TA55 PO (08:31)
[2019-06-23] MEDS ORDERED: CLOPIDOGREL 75 MG TAB PO SCH (09:00)
[2019-06-23] MEDS ORDERED: BENAZEPRIL 5 MG TAB PO SCH (09:00)
[2019-06-23] MEDS: GABAPENTIN 300 MG CAP PO SCH (09:44)
[2019-06-23] MEDS: metFORMIN 500 MG TAB PO SCH (09:44)
[2019-06-23] MEDS: methylPREDNISolone SS 40 MG/ML VIAL IVP SCH (09:45)
[2019-06-23] MEDS: ECOTRIN 81 MG TABEC PO SCH (09:46)
[2019-06-23] MEDS: LEVOFLOXACIN 500 MG/D5W PREMIX 100 ML IV SCH (09:46)
[2019-06-23 12:00] VITALS: BP 172/87
--- NOTE | 2019-06-23 12:16 | NUR ---
PT RESTING IN BED. NO S/S OF ACUTE DISTRESS. PT DENIES PAIN. CALL LIGHT WITHIN REACH. SAFETY MEASURES ENSURED. WILL CONTINUE TO MONITOR.
--- NOTE | 2019-06-23 13:24 | NUR ---
Consulted with Dr. Chapin regarding follow up appointment. He said the doctor's office is close now, will open at 2 o'clock. He will follow up make an appointment for patient.
--- NOTE | 2019-06-23 14:22 | NUR ---
JOSE assessment/discharge plan High Risk DC Screen Yes Name: Angelika Sung Home Tel: patient does not know Angelika's phone number Relationship: daughter Pre-Admission Living Arrangements: Lives Alone Prior ADL Independent Current Home Health Name/Tel: N/A Current DME/02 Name/Tel: walker, nebulizer Current Hospice Name/Tel: N/A Current Dialysis Name/Tel: N/A Healthcare Decision Maker: Patient Advance Directive No Information Taught: Advance Directive Community Resources Person Taught: Patient Teaching Tools: Community Resources Computer Generated Print Verbal Factors Affecting Learning: None Participation Level: Active Evaluation: Gestures Understanding Verbalizes Understanding Educator: JOSE Hough Discipline: Case Mgt/Social Svcs Tentative Discharge Plan Summary: Patient is a 73 year old female admitted for UTI, hypotension, and ALOC. I met with patient at bedside. Patient alert and oriented x4. Patient lives alone at home and plans to return home upon discharge. Patient's pcp is Andrés Oseguera and she does not have any difficulty filling her prescriptions at pharmacy. She told me her best friend Sia Grimes is able to assist her at home if needed. If home health services are recommended by attending MD/resident MD patient is in agreement. I verified her home address [address] [place] [address]. She does not know her phone number. She stated her health insurance [employer] provides transportation to pcp's office. I provided her with education on [employer] www.[email or web address] for community resources. She does not have any questions/concerns at this time. Broaching Machine Repairer and/or Directory Clerk will follow up as needed. Signature: JOSE Hough Date: Jun 23, 2019
[2019-06-23] MEDS ORDERED: hydrALAZINE 20 MG/ML VIAL IVP SCH (14:45)
--- NOTE | 2019-06-23 15:03 | NUR ---
NUTRITION EDUCATION REGARDING HIGH POTASSIUM FOODS WAS PROVIDED BY RD TO PATIENT UPON REQUEST. AN EDUCATIONAL HANDOUT WAS PROVIDED WELL. PT WAS RECEPTIVE TO EDUCATION.
[2019-06-23 15:09] VITALS: BP 158/94
[2019-06-23 15:32] VITALS: BP 158/94
--- NOTE | 2019-06-23 16:52 | NUR ---
pT DISCHARGED HOME. RIGHT IJ AND IV REMOVED, TIPS INTACT. NO S/S OF ACUTE DISTRESS. PT DENIES PAIN. PT GIVEN CAB VOUCHER. PT REMAINS STABLE
--- NOTE | 2019-06-24 15:10 | NUR ---
DC PLANNING [facility] SPOKE WITH MICHELLE STATED THEY ARE UNABLE TO CONTACT PT CALLED PATIENT AT [phone] NOTIFIED HER THAT REPLACED BY [facility] WILL CONTACT HER PT VERBALIZED UNDERSTANDING.
== END 2019-06-23 16:53 | disposition home health service (06) | DRG 207 ==
LOC: MED 20:23 → MIC 06-21 01:42 → MMU 06-21 18:50 → MTU 06-21 21:30
PROVIDERS: ADMIT General Practice; ATTEND General Practice
PROC: 02HV33Z Insertion of Infusion Device into Superior Vena Cava, Percutaneous Approach (ICD-10-PCS; principal; 2019-06-21)
PROC: B548ZZA Ultrasonography of Superior Vena Cava, Guidance (ICD-10-PCS; 2019-06-21)
DX: I95.9 Hypotension, unspecified (principal); E43 Unspecified severe protein-calorie malnutrition; E87.5 Hyperkalemia; E11.42 Type 2 diabetes mellitus with diabetic polyneuropathy; G90.8 Other disorders of autonomic nervous system; I42.9 Cardiomyopathy, unspecified; M41.9 Scoliosis, unspecified; E86.0 Dehydration; I50.9 Heart failure, unspecified; D64.9 Anemia, unspecified; N39.0 Urinary tract infection, site not specified; J44.1 Chronic obstructive pulmonary disease with (acute) exacerbation; F17.210 Nicotine dependence, cigarettes, uncomplicated; E66.9 Obesity, unspecified; R29.6 Repeated falls; F32.9 Major depressive disorder, single episode, unspecified; E78.5 Hyperlipidemia, unspecified; Z96.652 Presence of left artificial knee joint; T50.905A Adverse effect of unspecified drugs, medicaments and biological substances, initial encounter; Z68.31 Body mass index [BMI] 31.0-31.9, adult; Z88.1 Allergy status to other antibiotic agents; Z88.0 Allergy status to penicillin; Z79.82 Long term (current) use of aspirin; Z79.84 Long term (current) use of oral hypoglycemic drugs; Z86.73 Personal history of transient ischemic attack (TIA), and cerebral infarction without residual deficits; Y92.89 Other specified places as the place of occurrence of the external cause
CPT/HCPCS: 36415; 70450; 71045; 80048; 80053; 80305; 81001; 82140; 82550; 82607; 82728; 82746; 82948; 83036; 83540; 83605; 83690; 83735; 83880; 84100; 84443; 84484; 85025; 85045; 85610; 85730; 87040; 87081; 87086; 93005; 94640; 96361; 96365; 96375; 97110; 97112; 97116; 97161-GP; 97530; 99291; G0480; J0360; J0461; J1644; J1815; J1956; J2270; J2920; J3490; J7030; J7620; J7626; Q0092

== ENCOUNTER 2019-06-23 18:51 | Emergency (ER) | payer MEDICARE, OTHER ==
[~2019-06-23] VITALS: Ht 162.6 cm; Wt 74.4 kg
[~2019-06-23 18:51] MED LIST changes: -CLIN300C2 PO; +CLOP75TA55 PO; -LACT1.4C PO; -LEVO750T2 PO
[2019-06-23 19:07] VITALS: BP 146/99
--- NOTE | 2019-06-23 19:18 | NUR ---
PT IRVIN BLS. TAKEN TO BED 8
--- NOTE | 2019-06-23 19:20 | NUR ---
73 Y/O FEMALE BIBA FROM HOME FOR INCISION BLEEDING. PER EMS, PT WAS DISCHARGED FROM [facility] TODAY S/P STENT PLACEMENT. INCISION TO RIGHT SIDE NECK. PT STATES," I BENT DOWN TO PICK SOMETHING UP THEN I STARTED BLEEDING". PER EMS, APPROX 50+ CC OF BLOOD NOTED TO PT CLOTHING. PT. IS ALERT AND ORIENTED TO PERSON, PLACE, TIME, AND DATE. BLEEDING CONTROLLED. A TRANSPARENT DRESSING APPLIED TO NECK. DRIED BLOOD NOTED TO SURROUNDING SITE. BREATHING UNLABORED AND SYMMETRICAL; 98% ON RA. PATIENT IS AMBULATORY WITH ASSIST. DENIES N/V/D/FEVER/CHILLS. ERMD MADE AWARE OF STATUS. PLACED ON MONITOR. WILL CONTINUE TO MONITOR. PMH-- DM, HTN, ASTHMA, SCOLIOSIS RX:SEE MED REC ALLERGIES: SEE MED REC.
--- NOTE | 2019-06-23 19:50 | NUR ---
ERMD AT BEDSIDE EVALUATING PATIENT.
[2019-06-23] MEDS ORDERED: HYDROcodone/APAP 5/325 MG 1 TAB TAB PO ONE (19:55)
--- NOTE | 2019-06-23 20:25 | NUR ---
SPOKE WITH SISTER REGARDING PATIENT'S RIDE HOME.
--- NOTE | 2019-06-23 21:11 | NUR ---
PATIENT SITTING QUIETLY IN BED. NO PAIN NOTED AT THIS TIME. WILL CONTINUE TO MONITOR.
--- NOTE | 2019-06-23 22:07 | NUR ---
PATIENT SITTING QUIETLY IN BED. WILL CONTINUE TO MONITOR.
--- NOTE | 2019-06-23 23:40 | NUR ---
PATIENT SITTING QUIETLY IN BED. NO DISTRESS NOTED. WILL CONTINUE TO MONITOR.
--- NOTE | 2019-06-24 01:12 | NUR ---
Pt transfered to bed 1 for comfort.
--- NOTE | 2019-06-24 01:30 | NUR ---
PT LAYING SUPINE IN BED. VISIBLE CHEST RISE AND FALL NOTED. SAFETY MEASURES IN PLACE. WILL CONTINUE TO MONITOR.
--- NOTE | 2019-06-24 02:05 | NUR ---
PT AMBULATED TO RESTROOM, STEADY GAIT OBSERVED.
--- NOTE | 2019-06-24 02:30 | NUR ---
PT C/O LOW BACK PAIN. ERMD MADE AWARE.
[2019-06-24 04:30] VITALS: BP 156/87
[2019-06-24] MEDS ORDERED: HYDROcodone/APAP 5/325 MG 1 TAB TAB PO ONE (04:35)
[2019-06-24] MEDS ORDERED: KETOROLAC 30 MG/ML VIAL IM ONE (04:35)
--- NOTE | 2019-06-24 04:45 | NUR ---
PT LAYING SUPINE IN BED. VISIBLE CHEST RISE AND FALL NOTED. BEDRAILS X2UP. WILL CONTINUE TO MONITOR.
--- NOTE | 2019-06-24 06:00 | NUR ---
PT REPORTS DECREASED PAIN. WILL CONTINUE TO MONITOR.
--- NOTE | 2019-06-24 06:12 | NUR ---
Patient discharged with v/s stable. Written and verbal after care instructions given and explained. Patient verbalized understanding. Wheel Chair Assisted with RN. All questions addressed prior to discharge. Advised to follow up with PMD.
== END 2019-06-24 06:12 | disposition home or self-care (01) ==
LOC: MED 18:51
DX: M54.2 Cervicalgia (principal); J45.909 Unspecified asthma, uncomplicated; E11.9 Type 2 diabetes mellitus without complications; I10 Essential (primary) hypertension; Z48.89 Encounter for other specified surgical aftercare; Z90.49 Acquired absence of other specified parts of digestive tract; Z98.890 Other specified postprocedural states; Z90.710 Acquired absence of both cervix and uterus; Z86.73 Personal history of transient ischemic attack (TIA), and cerebral infarction without residual deficits; Z79.84 Long term (current) use of oral hypoglycemic drugs; Z79.899 Other long term (current) drug therapy; Z79.82 Long term (current) use of aspirin; Z88.0 Allergy status to penicillin; Z88.1 Allergy status to other antibiotic agents; Z88.2 Allergy status to sulfonamides
CPT/HCPCS: 96372; 99283; J1885